=== PATIENT | male | born 1985 | race Caucasian/White ===

== ENCOUNTER 2023-08-04 08:37 | Outpatient (CLI) | payer BC, SELFPAY ==
--- NOTE | ~2023-08-04 | XR_ITS ---
Clinical Indication: Cough PA and lateral views of the chest: Comparison: None Findings: The lungs are clear, without evidence of focal consolidation or pleural effusion. Cardiome diastinal silhouette is within normal limits. Bones and soft tissues are unremarkable. Impression: Normal chest. Reviewed, dictated and finalized at location . Impression: Normal chest.
[2023-08-04 19:18] LABS: Hematocrit 40.2 % (42.0-52.0); Hemoglobin 13.4 g/dL (14.0-18.0); Mean Corpuscular HGB Conc 33.3 g/dl (32-36); Mean Corpuscular Hemoglobin 30.7 pg (26-34); Mean Corpuscular Volume 92.2 fl (80-100); Mean Platelet Volume 10.2 fl (7.4-10.4); Platelet Count Result 232 k/mm3 (150-375); Red Blood Count 4.36 M/mm3 (4.6-6.20); Red Cell Distribution Width 13.2 % (11.5-14.5); White Blood Count 5.3 K/mm3 (4.5-10.0)
[2023-08-04 20:16] LABS: Alanine Aminotransferase 19 U/L (6-50); Albumin Level 4.2 g/dL (3.5-5.1); Alkaline Phosphatase 72 U/L (38-126); Anion Gap 7 mmol/L (8-16); Aspartate Amino Transferase 48 U/L (17-59); Bilirubin,Total 0.6 mg/dL (0.2-1.3); Blood Urea Nitrogen 14 mg/dL (9-20); Calcium 8.9 mg/dL (8.4-10.2); Carbon Dioxide 28 mmol/L (22-30); Chloride 103 mmol/L (98-107); Cholesterol 213 mg/dL (0-200); Estimated Glomerular Filt Rate > 60; Glucose 83 mg/dL (65-110); HDL Direct 67 mg/dL; Potassium 3.9 mmol/L (3.4-5.0); Sodium 138 mmol/L (137-145); Triglycerides 94 mg/dL (<150)
[2023-08-04 20:29] LABS: LDL Cholesterol Direct 101 mg/dL
== END 2023-08-04 08:38 | disposition home or self-care (01) ==
PROVIDERS: PCP Nurse Practitioner Adult Health; Visit Provider Nurse Practitioner Adult Health
DX: Z13.9 Encounter for screening, unspecified (principal); R05.9 Cough, unspecified
CPT/HCPCS: 36415; 71046; 80053; 80061; 84443; 85027

== ENCOUNTER 2024-07-29 08:23 | Outpatient (CLI) | payer BC, SELFPAY ==
[2024-07-29 19:02] LABS: Hemoglobin 8.3 g/dL (14.0-18.0); Mean Corpuscular HGB Conc 25.9 g/dl (32-36); Mean Corpuscular Hemoglobin 17.9 pg (26-34); Mean Corpuscular Volume 69.1 fl (80-100); Mean Platelet Volume 10.3 fl (7.4-10.4); Platelet Count Result 287 k/mm3 (150-375); Red Blood Count 4.63 M/mm3 (4.6-6.20); Red Cell Distribution Width 19.9 % (11.5-14.5); White Blood Count 3.9 K/mm3 (4.5-10.0)
[2024-07-29 19:12] LABS: Alanine Aminotransferase 19 U/L (6-50); Albumin Level 4.4 g/dL (3.5-5.1); Alkaline Phosphatase 58 U/L (38-126); Anion Gap 9 mmol/L (4-12); Aspartate Amino Transferase 37 U/L (17-59); Bilirubin,Total 0.3 mg/dL (0.2-1.3); Blood Urea Nitrogen 14 mg/dL (9-20); Calcium 8.9 mg/dL (8.4-10.2); Carbon Dioxide 28 mmol/L (22-30); Chloride 99 mmol/L (98-107); Cholesterol 197 mg/dL (0-200); Estimated Glomerular Filt Rate > 60; Glucose 92 mg/dL (65-110); HDL Direct 68 mg/dL; Potassium 4.1 mmol/L (3.4-5.0); Sodium 136 mmol/L (137-145); Triglycerides 131 mg/dL (<150)
[2024-07-29 19:23] LABS: LDL Cholesterol Direct 90 mg/dL
[2024-07-29 19:29] LABS: Iron 25 ug/dL (49-181)
[2024-07-29 19:40] LABS: Percent Iron Saturation 6 % (20-50)
[2024-07-29 20:05] LABS: Ferritin 3.01 ng/mL (17.9-464)
== END 2024-07-29 08:24 | disposition home or self-care (01) ==
LOC: ANHBWCLAB 08:24
PROVIDERS: PCP Nurse Practitioner Adult Health; Visit Provider Nurse Practitioner Adult Health
DX: Z13.9 Encounter for screening, unspecified (principal); R63.8 Other symptoms and signs concerning food and fluid intake
CPT/HCPCS: 36415; 80053; 80061; 82607; 82728; 83540; 83550; 84443; 85027

== ENCOUNTER 2024-08-09 09:35 | Outpatient (CLI) | payer BC, SELFPAY ==
[2024-08-09 18:38] LABS: Hematocrit 33.4 % (42.0-52.0); Hemoglobin 8.7 g/dL (14.0-18.0); Mean Corpuscular Hemoglobin 18.4 pg (26-34); Mean Corpuscular Volume 70.5 fl (80-100); Mean Platelet Volume 10.1 fl (7.4-10.4); Platelet Count Result 250 k/mm3 (150-375); Red Blood Count 4.74 M/mm3 (4.6-6.20); Red Cell Distribution Width 21.6 % (11.5-14.5); White Blood Count 4.6 K/mm3 (4.5-10.0)
== END 2024-08-09 09:36 | disposition home or self-care (01) ==
LOC: ANHBWCLAB 09:37
PROVIDERS: PCP Nurse Practitioner Adult Health; Visit Provider Nurse Practitioner Adult Health
DX: D64.9 Anemia, unspecified (principal)
CPT/HCPCS: 36415; 85027

== ENCOUNTER 2024-09-01 15:29 | Outpatient (CLI) | payer BC, SELFPAY ==
[2024-09-01 15:41] LABS: Basophils Percent Auto 0.8 % (0.2-1.2); Eosinophils Absolute Auto 0.1 K/mm3 (0-0.3); Eosinophils Percent Auto 1.6 % (0-4.4); Hematocrit 37.3 % (42.0-52.0); Hemoglobin 11.1 g/dL (14.0-18.0); Immature Granulocyte Absolute 0.01 K/mm3 (0.00-0.031); Immature Granulocyte Percent A 0.2 % (0-0.5); Lymphocytes Absolute Auto 1.58 K/mm3 (0.9-3.2); Lymphocytes Percent Auto 31.5 % (18.3-44.2); Mean Corpuscular HGB Conc 29.8 g/dl (32-36); Mean Corpuscular Hemoglobin 21.9 pg (26-34); Mean Corpuscular Volume 73.7 fl (80-100); Mean Platelet Volume 8.9 fl (7.4-10.4); Monocytes Absolute Auto 0.6 K/mm3 (0.1-0.6); Monocytes Percent Auto 11.4 % (2.6-8.5); Neutrophils Absolute Auto 2.7 K/mm3 (1.3-6.7); Neutrophils Percent Auto 54.5 % (45.5-73.1); Platelet Count Result 228 k/mm3 (150-375); Red Blood Count 5.06 M/mm3 (4.6-6.20); Red Cell Distribution Width 26.5 % (11.5-14.5)
[2024-09-01 15:45] LABS: Hypochromasia 1+; Platelet Estimate Adequate (Adequate); Schistocytes None Seen
[2024-09-01 15:46] LABS: Anisocytosis 1+; Microcytosis 1+ (NORMAL)
[2024-09-01 17:10] LABS: Alanine Aminotransferase 23 U/L (6-50); Albumin Level 4.5 g/dL (3.5-5.1); Alkaline Phosphatase 58 U/L (38-126); Anion Gap 7 mmol/L (4-12); Aspartate Amino Transferase 26 U/L (17-59); Bilirubin,Total 0.3 mg/dL (0.2-1.3); Blood Urea Nitrogen 16 mg/dL (9-20); Carbon Dioxide 30 mmol/L (22-30); Chloride 100 mmol/L (98-107); Estimated Glomerular Filt Rate > 60; Glucose 92 mg/dL (65-110); Potassium 3.9 mmol/L (3.4-5.0); Sodium 137 mmol/L (137-145)
[2024-09-01 18:28] LABS: Folic Acid > 20.0 ng/mL (2.76->20)
[2024-09-01 21:06] LABS: Iron 46 ug/dL (49-181)
[2024-09-01 21:17] LABS: Percent Iron Saturation 12 % (20-50)
[2024-09-01 21:42] LABS: Ferritin 7.36 ng/mL (17.9-464)
== END 2024-09-01 15:30 | disposition home or self-care (01) ==
LOC: ANHLAB 15:29
PROVIDERS: PCP Nurse Practitioner Adult Health; Visit Provider Internal Medicine Hematology & Oncology
DX: D64.9 Anemia, unspecified (principal)
CPT/HCPCS: 36415; 80053; 82607; 82728; 82746; 83540; 83550; 85025

== ENCOUNTER 2024-09-16 01:34 | Day surgery (SDC) | payer BC, SELFPAY ==
[2024-09-15 10:19] VITALS: BMI 32.2
[2024-09-16 06:43] VITALS: BP 123/66; PULSE 79; RESP 16; TEMP 36.1; O2SAT 98; BMI 32.2
[2024-09-16] MEDS: LACTATED RINGERS 1,000 ML 150 ML IV CONT (06:51)
--- NOTE | 2024-09-16 07:12 | SUR.OPER ---
I spoke with patient today about his Givens Capsule Instructions. Envelope with all information and phone numbers provided. States no questions at this time.
--- NOTE | 2024-09-16 07:40 | WPDANESEPPF ---
Anes - Initial Pre Proc Eval Procedure: Operation Date: 09/16/24 08:00 Proposed Procedures p Esophagogastroduodenoscopy - Nolberto Artis MD s [facility] Hemorrhoid Treatment - Nolberto Artis MD Date/Time: 09/16/24 07:40 Surgeon: Nolberto Artis MD Pre Op Diagnosis: anemia, GERD, hemorrhage of anus/rectum Patient Data Age: 38 Gender: M Height: 1.78 m Weight: 101.9 kg Last Vital Signs Temp 36.1 C L 09/16/24 06:43 Pulse 79 09/16/24 06:43 Resp 16 09/16/24 06:43 BP 123/66 09/16/24 06:43 Pulse Ox 98 09/16/24 06:43 O2 Del Method Room Air 09/16/24 06:43 Allergies Allergy/AdvReac Type Severity Reaction Status Date / Time No Known Allergies Allergy Verified 09/16/24 06:42 Home Medications Medication Instructions Recorded Confirmed Type omeprazole 40 mg capsule,delayed See Rx Instructions .Route 07/15/24 09/16/24 Rx release .COMPLEX #90 caps multivitamin 1 tablet PO DAILY 09/14/24 09/16/24 History Patient hx anesthesia problems: none Family hx anesthesia problems: none Results Review: All pre-operative results and documents have been reviewed as part of the pre-operative evaluation. [facility] Past Medical History Medical History (Updated 09/16/24 @ 07:41 by Caleb Bush CRNA) Avulsion fracture of metatarsal bone of left foot Compartment syndrome GERD (gastroesophageal reflux disease) Hemorrhoids Hernia [place] (iron deficiency anemia) SERENITY (obstructive sleep apnea) Surgical History Surgical History Hx of LASIK Family History Family History Grandparent Diabetes mellitus Hypertension Grandparent Cancer Social History Social History Smoking status: Never smoker Alcohol intake: current Drinks per week: 4 Alcohol use details: Beer 3-4 Beer Substance use: current Lack of Transportation: No Lack of Food: Never True Current Housing: I Have Housing Concerned About Future Housing: No Difficulty Paying Gas/Electric Bills: No Difficulty Paying for Meds: No Currently Unemployed: No Education: Master's Degree or Higher Difficulty w/ Childcare or Family Care: No Living arrangements: with family Occupation/Education: occupation 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 Informed Consent: The patient's anesthetic plan and its attendant risks and benefits were discussed with the patient/family/POA. Questions were solicited and answers provided to the satisfaction of the patient/family/POA.
--- NOTE | 2024-09-16 07:41 | WPDHPUPDATE1 ---
History and Physical Update Update Date/Time: 09/16/24 07:41 History and Physical has been reviewed, including an updated exam of the patient. There are NO changes in the patient's condition. Risks, benefits, and alternatives have been discussed and questions answered. Patient agrees to proceed with procedure.
[2024-09-16 07:55] VITALS: BP 97/67; PULSE 67; RESP 20; O2SAT 96
[2024-09-16 08:05] VITALS: BP 102/55; PULSE 59; RESP 17; O2SAT 96
[2024-09-16 08:15] VITALS: BP 116/69; PULSE 66; RESP 17; O2SAT 98
--- NOTE | 2024-09-16 08:28 | W.PM.PROC2 ---
Procedure Note - Detailed Date of Procedure 09/16/24 Pre-op Diagnosis hemorrhage of anus/rectum Post-op Diagnosis Same Procedure Performed irc of internal hemorrhoids Surgeon Nolberto Artis MD Anesthesia MAC (also had EGD) Findings small size internal hemorrhoids, no bleeding, no fissure Description of Procedure noted small size internal hemorrhoids, placed anoscope, no lesions, no bleeding. Then advanced IRC probe and hemorrhoids treated for 1.5s x7
== END 2024-09-16 08:47 | disposition home or self-care (01) ==
PROVIDERS: PCP Nurse Practitioner Adult Health; Referring Provider Nurse Practitioner Family; Visit Provider Internal Medicine Gastroenterology
PROC: 0DJ08ZZ Inspection of Upper Intestinal Tract, Via Natural or Artificial Opening Endoscopic (ICD-10-PCS; CPT 43235; principal; 2024-09-16 08:00)
PROC: (CPT 46930; 2024-09-16 08:00)
DX: K64.8 Other hemorrhoids (principal); K29.50 Unspecified chronic gastritis without bleeding; D50.9 Iron deficiency anemia, unspecified; K21.9 Gastro-esophageal reflux disease without esophagitis; G47.33 Obstructive sleep apnea (adult) (pediatric); E66.9 Obesity, unspecified; Z68.32 Body mass index [BMI] 32.0-32.9, adult; Z98.890 Other specified postprocedural states; Z86.0100 Personal history of colon polyps, unspecified; Z80.9 Family history of malignant neoplasm, unspecified
CPT/HCPCS: 43239; 46930; 88305; J2704; J7120

== ENCOUNTER 2024-09-29 06:09 | Outpatient (CLI) | payer BC, SELFPAY ==
[2024-09-29 06:28] VITALS: BP 119/65; PULSE 65; RESP 18; TEMP 36.7; O2SAT 97
[2024-09-29] MEDS: SIMETHICONE ORAL SUSPENSION 20 MG/0.3 ML 30 ML BOTTLE 0.6 ML IRRIGATION (06:33)
--- NOTE | 2024-09-29 06:36 | SUR.OPER ---
Patient brought to GI Lab. Instructions for patient undergoing Capsule Endoscopy reviewed with patient. Consent form signed. Sensor array applied to patient's abdomen and connected to recorded. Patient swallowed capsule with 16 ozs of water infused with Simethicone. Patient instructed they may have clear liquids at 0830 this AM and eat or drink at 1030 this AM. Patient instructed to return to GI Lab at 1500 this afternoon for removal of recording device and to call [phone] or to return to the hospital if any nausea and vomiting or abdominal pain is experienced.
--- NOTE | 2024-09-29 15:00 | SUR.PREOP ---
Patient returned to the GI Lab at 1445 for recorder box removal. Patient voiced no complaints. States they have understanding of instructions. Patient left ambulatory.
== END 2024-09-29 06:10 | disposition home or self-care (01) ==
PROVIDERS: PCP Nurse Practitioner Adult Health; Referring Provider Nurse Practitioner Family; Visit Provider Internal Medicine Gastroenterology
PROC: 0DJ07ZZ Inspection of Upper Intestinal Tract, Via Natural or Artificial Opening (ICD-10-PCS; CPT 91110; principal; 2024-09-29 07:00)
DX: D50.9 Iron deficiency anemia, unspecified (principal); Z01.818 Encounter for other preprocedural examination
CPT/HCPCS: 91110

== ENCOUNTER 2025-03-28 11:43 | Outpatient (CLI) | payer BC, SELFPAY ==
--- OUTSIDE RECORDS SUMMARY | 2025-03-28 11:46 | XMS_ITS | Clinical Summary ---
Author Organization [facility] Address [address] [facility] [place] [address] Care Team Providers Care Logistics Engineer Name Role Phone Yadiel Eaton MD Primary Care Provider [phone] Allergies No known active allergies Medications omeprazole (PriLOSEC) 40 mg Capsule, Delayed Release(E.C.) Take 1 Capsule by mouth daily. 07/16/2024 Active Active Problems No known active problems Encounters Date Type Department Care Team Description 01/11/2025 External Device Data ST[facility] ABSTRACTION Provider, Abstract from Last 3 Months Family History Medical History Relation Name Comments No Known Problems Child 1 No Known Problems Child 2 No Known Problems Father No Known Problems Mother No Known Problems Sister Relation Name Status Comments Child 1 Alive Child 2 Alive Father Alive Mother Alive Sister Alive Social History Tobacco Use Types Packs/Day Years Used Date Smoking Tobacco: Never Smokeless Tobacco: Never Tobacco Cessation:Counseling Given: Not Answered Alcohol Use Standard Drinks/Week Comments Yes 0 (1 standard drink = 0.6 oz pur e alcohol) Socially Sex and Gender Information Value Date Recorded Sex Assigned at Not on file Legal Sex Male 10:03 AM CDT Gender Identity Not on file Sexual Orientation Not on file Last Filed Vital Signs Vital Sign Reading Time Taken Comments Blood Pressure 117/72 12/22/2024 9:32 AM TIRE RECAPPER Pulse 75 12/22/2024 9:32 AM TIRE RECAPPER Temperature 35.8 C (96.5 F) 12/22/2024 9:32 AM TIRE RECAPPER Respiratory Rate 14 12/22/2024 9:32 AM TIRE RECAPPER Oxygen Saturation 97% 12/22/2024 9:32 AM TIRE RECAPPER Inhaled Oxygen Concentration - - Weight 99.8 kg (220 lb) 12/22/2024 9:32 AM TIRE RECAPPER Height 177.8 cm (5' 10 ) 08/17/2024 3:07 PM CDT Body Mass Index 31.57 08/17/2024 3:07 PM CDT Plan of Treatment Upcoming Encounters Date Type Department Care Team (Late st Contact Info) Description 03/29/2025 1:00 PM CDT Office Visit [facility] Oncology and Hematology - [place] [address] [facility] [address] [place] [address] Shadi Suárez MD [address] [place] [address] Health Maintenance Due Date Last Done Comments Pre-Diabetes and Diabetes Screening 1985 INFLUENZA VACCINE (#1) 2024 , 08/30/2022, 10/11/2020, Additional history exists COVID-19 Vaccine ( season) 2024 09/25/2021, 12/15/2020, 11/15/2020 Preventative Visit- Commercial 11/17/2024 03/05/2019 DTAP/TDAP/TD VACCINES (4 - Td or Tdap) 08/30/2032 08/30/2022, 11/19/2011, 07/30/2002 HEPATITIS B VACCINES Completed 04/13/2003, 09/04/2002, 08/06/2002 HPV VACCINES Aged Out No longer eligi ble based on patient's age to complete this topic Insurance [facility] FEDERAL Care Teams Logistics Engineer Relationship Specialty Start Date End Date Yadiel Eaton MD [address] [place] [id number] PCP - General Family Practice 12/22/24
--- OUTSIDE RECORDS SUMMARY | 2025-03-28 11:47 | XMS_ITS | Clinical Summary ---
Author Organization [facility] Address [address] [place] [address] Care Team Providers Care Oil Fire Specialist Name Role Phone Unavailable Primary Care Provider Unavailabl e Social History Tobacco Use Types Packs/Day Years Used Date Smoking Tobacco: Never Assessed Sex and Gender Information Value Date Recorded Sex Assigned at Not on file Legal Sex Male 8:00 PM CDT Gender Identity Not on file Sexual Orientation Not on file Plan of Treatment Health Maintenance Due Date Last Done Comments Annual Physical 1986 Hepatitis C 2001 DTaP, Tdap and Td Vaccines ( 1 - Tdap) 2002 Hepatitis B Vaccines (1 of 3 - 19+ 3-dose series) 2002 COVID-19 Vaccine ( - 2023-2 5 season) 2024 HPV Vaccines Aged Out No longer eligi ble based on patient's age to complete this topic Meningococcal B Vaccine Aged Out No l onger eligible based on patient's age to complete this topic Meningococcal Vaccine Aged Out No ambika anjali eligible based on patient's age to complete this topic Pneumococcal Vaccine: Pediat rics (0 to 5 Years) and At-Risk Patients (6 to 49 Years) Aged Out No longer eligible b ased on patient's age to complete this topic RSV Immunizations Under 20 Months Aged Out No longer eligible based on patient's age to complete this topic
--- OUTSIDE RECORDS SUMMARY | 2025-03-28 11:47 | XMS_ITS | Clinical Summary ---
Author Organization [facility] [address] Address [address] [place] [address] Phone Care Team Providers Care Plastic Injection Mold Maker Name Role Phone Yadiel Eaton MD Primary Care Provider [phone] Allergies No known active allergies Medications hydrocortisone (ANUSOL-HC) 25 mg suppositoryInd ications:Hemor rhoids Insert 1 suppository (25 mg total) into the rectum 2 (two) times a day 28 suppository 3 Active Active Problems Problem Noted Date Diagnosed Date Personal history of colonic polyps 08/19/2023 Encounter for screening colonoscopy 08/19/2023 Non morbid obesity 01/15/2018 Assessment & Plan (03/05/2019 10:40 AM CDT): His weight is unchanged. Otherwise he is young and healthy and has no complaints. He plans to work on a better diet and some weight loss over the next several years along with his . Tubular adenoma of colon 08/02/2015 Overview (02/20/2017): Tubular adenoma of colon Assessment & Plan (03/05/2019 10:43 AM CDT): He was having some blood in the stool, and was evaluated with a colonoscopy that showed a small adenomatous polyp. The bleeding was perianal in etiology, probably from hemorrhoids. He does not really have constipation, but sometimes tries to hurry his bowel movements which is when he has problems with the bleeding. Fiber supplements have not helped. I recommend that he try MiraLax and titrate the dose so he has regular soft bowel movements. He will give that a try. Aphthous ulcer 07/06/2015 Overview (02/21/2017): Aphthous ulcer of mouth Immunizations Immunization Administration Dates Next Due Hep A / Hep B 04/13/2003,09/04/2002,08/06/2002 Influenza, Quadrivalent, Lola l Culture-based MDCK, Antibiotic Free, Intramuscular 01/03/2019 Azeri Encephalitis IM 02/09/2019 MMR 08/06/2002 Meningococcal ACWY, Unspecified 07/30/2002 PPD TEST 07/23/2005,06/27/2004,07/30/2002 Td, Unspecified 07/30/2002 Tdap 11/19/2011 Tetanus toxoid, adsorbed 02/16/2012 Typhoid, Unspecified 10/18/2003 Surgical History Surgery Date Site/Laterality Comments ANTERIOR COMPARTMENT DECOMPRESSION 11/17/1995 - 11/16/1996 Left Emergency decompression, left arm anterior compartment, football injury. COLONOSCOPY 07/18/2015 - 08/16/2015 COLONOSCOPY 11/17/2019 - 11/16/2020 POLYPECTOMY Medical History Medical History Date Comments Compartment syndrome 1995 Left arm. D etails lacking. Colon polyp Family History Medical History Relation Name Comments Breast cancer Mother Cancer, breast ; Fibromyalgia Mother Fibromyalgia; Relation Name Status Comments Mother Social History Tobacco Use Types Packs/Day Years Used Date Smoking Tobacco: Never Smokeless Tobacco: Never Tobacco Cessation:Counseling Given: Not Answered AUDIT-C Answer Date Recorded Q1: How often do you have a drink containing alc ohol? 2-4 times a month 10/06/2023 Q2: How many drinks containi ng alcohol do you have on a typical day when you are drinking? 3 or 4 10/06/2023 Frequency of Binge Drinking Not on file 09/18 Personal Safety Answer Date Recorded Have you ever been in or are you currently in a harmful physical or emotional relationship or is someone making you feel afraid or unsafe? Denies 10/06/2023 Sex and Gender Information Value Date Recorded Sex Assigned at Not on file Legal Sex Male 2:49 AM SOFTWARE DEVELOPER CONSULTANT Gender Identity Not on file Sexual Orientation Not on file Obstetrics History Last Filed Vital Signs Vital Sign Reading Time Taken Comments Blood Pressure 115/80 10/06/2023 11:55 AM SOFTWARE DEVELOPER CONSULTANT Pulse 65 10/06/2023 11:55 AM SOFTWARE DEVELOPER CONSULTANT Temperature 36.8 C (98.3 F) 10/06/2023 11:55 AM SOFTWARE DEVELOPER CONSULTANT Respiratory Rate 18 10/06/2023 11:55 AM SOFTWARE DEVELOPER CONSULTANT Oxygen Saturation 100% 10/06/2023 11:55 AM SOFTWARE DEVELOPER CONSULTANT Inhaled Oxygen Concentration - - Weight 97.5 kg (215 lb) 10/06/2023 10:01 AM SOFTWARE DEVELOPER CONSULTANT Height 177.8 cm (5' 10 ) 10/06/2023 10:01 AM SOFTWARE DEVELOPER CONSULTANT Body Mass Index 30.85 10/06/2023 10:01 AM SOFTWARE DEVELOPER CONSULTANT Plan of Treatment Health Maintenance Due Date Last Done Comments Depression Screening 1985 Hepatitis C Screening 1985 Varicella Vaccines (1 of 2 - 13+ 2-dose series) 09/07/2010 Regular Well Visit/Exam 18-64 03/05/2020 03/05/2019 Covid-19 Vaccine ( season) 2024 09/25/2021, 12/15/2020, 11/15/2020, Additional history exists Influenza Vaccine (#1) 2024 3, 08/30/2022, 10/11/2020, Additional history exists DTaP/Tdap/Td Vaccine (4 - Td or Tdap) 08/30/2032 08/30/2022, 02/16/2012, 11/19/2011, Additional history exists Hepatitis B Screening Completed 04/13/2003 , 09/04/2002, 08/06/2002 HPV Vaccines Aged Out No longer eligi ble based on patient's age to complete this topic Pneumococcal vaccine <65 Aged Out No longer eligible based on patient's age to complete this topic Additional Health Concerns Infection Onset Date Last Indicated MDR gram neg/ESBL Comment:Patients who received care at a healthcare facility outside of the [place] will be placed in Contact Precautions until infection or colonization with specific highly resistant bacteria can be ruled out. Infection Prevention will arrange screening. Please contact Infection Prevention. 10/03/2023 10/03/2023 Insurance [employer] Advance Directives For more information, please contact: [phone] * Full Code (Latest Code Status on File) Date Activated Date Inactivated Comments 10/06/2023 9:57 AM 10/06/2023 4:26 PM * Full Code Date Activated Date Inactivated Comments 10/06/2023 9:57 AM 10/06/2023 9:57 AM Care Teams Plastic Injection Mold Maker Relationship Specialty Start Date End Date Yadiel Eaton MD PCP - General Family Practice 10/06/23
--- OUTSIDE RECORDS SUMMARY | 2025-03-28 11:47 | XMS_ITS | Continuity of Care Document ---
Author Name [facility] Organization [facility] Care Team Providers Care Establishment Guide Name Role Phone [facility] Unavailable Unavailable Problems Combined list of problems from Department of Defense and Veterans Affairs facilities. It does not include entries that were removed or entered in error. 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) Active 09/08/20 Diagnosis 5C375 [facility] Removal Of Sutures Inactive Condition Do D OPEN WOUND OF THE FINGER(S) Inactive Condition DoD visit for: administrative purpose Inactive Condition DoD NORMAL ROUTINE HISTORY AND PHYSICAL Inactive Condition DoD visit for: screening exam pulmonary tuberculosis Inactive Condition DoD visit for: occupational health / fitness exam Active Condition Reviewed functional requirements and environmental factors of the position and they are acceptable to him.Reviewed exposure history form and placed it in hard copy of CEMRReviewed DD form 2807 and placed in CEMRReviewed audiogram and vision tx DoD visit for: services physical Inactive Condition DoD visit for: issue medical certificate Inactive Condition DoD REFRACTIVE ERROR - MYOPIA Active Condition DoD ASTIGMATISM Active Condition DoD foot pain (soft tissue) Inactive Condition toe dislocation / now reduced DoD FRACTURE OF METATARSAL BONE(S) Active Condition with midd le tarsal phalange dislocation, now reducedF/U fx clinic Oct 21. DoD Administrative Evaluation Services Inactive Condition DoD ASSESSMENT OF PATIENT CONDITION WORK STATUS Inactive Condition DoD Astigmatism Active Condition -375 th [facility] Myopia Active Condition 5C375 th [facility] Allergies, Adverse Reactions, Alerts Combined list of allergies from Department of Defense and Veterans Affairs facilities. It does not include entries that were removed or entered in error. Substance Category Reaction Severity Reaction type Status Date Reported Comments Source NO OUTPUT FOR NCID 801150 Drug allergy (disorder) active 07/26/2008 [facility] Immunizations Combined list of available immunizations from the Department of Defense and Veterans Affairs facilities. Immunization Series Date Given Administered By Site Reaction Lot Number CVX Code Drug Principal Ios Developer Status Comments Source influenza virus vaccine, inactivated 2022 MOODY MELISSA Valdez mike, left (delt oid) [id number] Nugg-it, A [employer] complet ed influenza virus vaccine, inactivat ed 09/08/23 Given 0055C-3 [facility] tetanus, diphtheria, acellular pertu is 2021 zzLef t Arm [id number] 115 sanofi pasteur complet ed tetanus, diphtheri a, acellular pertussis 08/30/22 Given Ambulat ory Pharmac y influenza, injectable, quadrivalent- pf 2021 zzRig ht Thigh [id number] 150 GlaxoSmithKli ne complet ed influenza , injectabl e, quadrival ent-pf 08/30/22 Given Ambulat ory Pharmac y tetanus toxoid, reduced diphtheria toxoid, and acellular pertu is vaccine, adsorbed 1 2021 TEO STALLWORTH A [id number] 115 Sanofi Pasteur (PMC) complet ed tetanus toxoid, reduced diphtheri a toxoid, and acellular pertussis vaccine, adsorbed DoD Influenza, injectable, quadrivalent, preservative free 1 2021 CAPRIArianna PRINCESS V [id number] 150 [facility] ([facility]) complet ed Influenza , injectabl e, quadrival ent, preservat benjamín free DoD COVID Vaccine Moderna 2020 zzLef t Arm [id number] 207 complet ed COVID Vaccine Moderna 09/25/21 Given Ambulat ory Pharmac y SARS-COV-2 (COVID-19) vaccine, mRNA, spike protein, LNP, preservative free, 100 mcg or 50 mcg dose 2 2020 CHERIE ROY [id number] 207 Moderna [employer] (MOD) complet ed SARS-COV- 2 (COVID-19 ) vaccine, mRNA, spike protein, LNP, preservat benjamín free, 100 mcg or 50 mcg dose DoD COVID Vaccine Moderna 2020 Body, whole [id number] 207 complet ed COVID Vaccine Moderna 12/15/20 Given Ambulat ory Pharmac y SARS-COV-2 (COVID-19) vaccine, mRNA, spike protein, LNP, preservative free, 100 mcg or 50 mcg dose 1 2020 CHERIE ROY [id number] 207 Moderna [employer] (MOD) complet ed SARS-COV- 2 (COVID-19 ) vaccine, mRNA, spike protein, LNP, preservat benjamín free, 100 mcg or 50 mcg dose DoD COVID Vaccine Pfizer 2019 Body, whole [id number] 208 complet ed COVID Vaccine Pfizer 11/15/20 Given Ambulat ory Pharmac y COVID Vaccine Moderna 2019 [id number] 207 complet ed COVID Vaccine Moderna 11/15/20 Given Ambulat ory Pharmac y SARS-COV-2 (COVID-19) vaccine, mRNA, spike protein, LNP, preservative free, 30 mcg/0.3mL dose 1 2019 CHERIE ROY [id number] 208 Transcribed (TRS) complet ed SARS-COV- 2 (COVID-19 ) vaccine, mRNA, spike protein, LNP, preservat benjamín free, 30 mcg/0.3mL dose DoD influenza, injectable, quadrivalent- pf 2019 TRANSCR IBED 150 complet ed influenza , injectabl e, quadrival ent-pf 10/11/20 Given Ambulat ory Pharmac y Turkmen Encephalitis IM 2018 [id number] 134 Valneva complet ed Turkmen Encephali tis IM 03/25/19 Given Ambulat ory Pharmac y Turkmen Encephalitis IM 2018 [id number] 134 Valneva complet ed Turkmen Encephali tis IM 02/09/19 Given Ambulat ory Pharmac y influenza virus vaccine, unspecified 2018 TRANSCR IBED 88 complet ed influenza virus vaccine, unspecifi ed 01/03/19 Given Ambulat ory Pharmac y influenza, injectable, quadrivalent- pf 2014 [id number] 150 [facility] influenza , injectabl e, quadrival ent-pf 09/04/15 Given Ambulat ory Pharmac y influenza, seasonal, injectable-pf 2011 [id number] 140 sanofi pasteur complet ed influenza , seasonal, injectabl e-pf 07/24/12 Given Ambulat ory Pharmac y tetanus, diphtheria, acellular pertu is 2011 TRANSCR IBED 115 complet ed tetanus, diphtheri a, acellular pertussis 11/19/11 Given Ambulat ory Pharmac y influenza virus vaccine, live 2009 [id number] 111 sim[employer]tec Inc comple t ed influenza virus vaccine, live 08/10/10 Given Ambulat ory Pharmac y influenza virus vaccine,split 2007 [id number] 15 GlaxoSmithKli ne complet ed influenza virus vaccine,s plit 09/06/08 Given Ambulat ory Pharmac y influenza virus vaccine,split 2004 [id number] 15 sanofi pasteur complet ed influenza virus vaccine,s plit 10/31/05 Given Ambulat ory Pharmac y tuberculin purified protein derivative 2004 [id number] 96 sanofi pasteur complet ed tuberculi n purified protein derivativ e 07/23/05 Given Ambulat ory Pharmac y influenza virus vaccine,split 2004 [id number] 15 sanofi pasteur complet ed influenza virus vaccine,s plit 03/22/05 Given Ambulat ory Pharmac y tuberculin purified protein derivative 2003 [id number] complet ed tuberculi n purified protein derivativ e 06/27/04 Given Ambulat ory Pharmac y typhoid Vi capsular polysaccharid e vac 2002 [id number] 101 sanofi pasteur complet ed typhoid Vi capsular polysacch aride vac 10/18/03 Given Ambulat ory Pharmac y influenza virus vaccine, whole virus 2002 [id number] Novartis Pharmaceut[employer] ls complet ed influenza virus vaccine, whole virus 08/16/03 Given Ambulat ory Pharmac y hepatitis A-hepatitis B vaccine 2002 [id number] 104 GlaxoSmithKli ne complet ed hepatitis A-hepatit is B vaccine 04/13/03 Given Ambulat ory Pharmac y hepatitis A-hepatitis B vaccine 2002 [id number] 4 104 GlaxoSmithKli ne complet ed hepatitis A-hepatit is B vaccine 04/13/03 Given Ambulat ory Pharmac y hepatitis A-hepatitis B vaccine 2001 [id number] 6 104 GlaxoSmithKli ne complet ed hepatitis A-hepatit is B vaccine 09/04/02 Given Ambulat ory Pharmac y hepatitis A-hepatitis B vaccine 2001 [id number] 6 104 GlaxoSmithKli ne complet ed hepatitis A-hepatit is B vaccine 09/04/02 Given Ambulat ory Pharmac y influenza virus vaccine, whole virus 2001 [id number] 16 sanofi pasteur complet ed influenza virus vaccine, whole virus 08/21/02 Given Ambulat ory Pharmac y hepatitis A-hepatitis B vaccine 2001 [id number] 6 104 GlaxoSmithKli ne complet ed hepatitis A-hepatit is B vaccine 08/06/02 Given Ambulat ory Pharmac y measles/mumps /rubella virus vaccine 2001 [id number] [employer] complet ed measles/m umps/rube lla virus vaccine 08/06/02 Given Ambulat ory Pharmac y hepatitis A-hepatitis B vaccine 2001 [id number] 6 104 GlaxoSmithKli ne complet ed hepatitis A-hepatit is B vaccine 08/06/02 Given Ambulat ory Pharmac y poliovirus vaccine, inactivated 2001 [id number] sanofi pasteur complet ed polioviru s vaccine, inactivat ed 07/30/02 Given Ambulat ory Pharmac y tuberculin purified protein derivative 2001 [id number] 96 sanofi pasteur complet ed tuberculi n purified protein derivativ e 07/30/02 Given Ambulat ory Pharmac y meningococcal polysaccharid e (MPSV4) 2001 [id number] 32 sanofi pasteur complet ed meningoco ccal polysacch aride (MPSV4) 07/30/02 Given Ambulat ory Pharmac y tetanus-dipht h toxoids (Td) adult/adol 2001 [id number] 09 sanofi pasteur complet ed tetanus-d iphth toxoids (Td) adult/ado l 07/30/02 Given Ambulat ory Pharmac y Results Combined list of recent chemistry, hematology and other laboratory results from Department of Defense and Veterans Affairs, ranging from 15 months to all on record, depending upon the facility. Order Name Results Value Reference Range Date Interpretation Specimen Comments Source Chemistry CO2 28 mmol/L 22 - 29 08/31 N 0055A-[address] [place] [address] Chemistry Glucose Lvl 91 mg/dL 74 - 99 08/31 N -[address] [place] [address] Chemistry Creatinine Level 1.00 mg/dL 0.72 - 1.25 08/31 N -[address] [place] [address] Chemistry Sodium 139 mmol/L 136 - 145 08/31 N -[address] [place] [address] Chemistry Potassium Lvl 3.7 mmol/L 3.5 - 5.1 08/31 N -[address] [place] [address] Chemistry AGAP 7.00 0.00 - 15.00 08/31 N -[address] [place] [address] Chemistry BUN/Creat Ratio 17 mg/dL 12 - 20 08/31 N -[address] [place] [address] Chemistry BUN 17 mg/dL 8 - 26 08/31 N -[address] [place] [address] Chemistry Chloride 104 mmol/L 98 - 107 08/31 N - [address] [place] [address] Chemistry Calcium 9.4 mg/dL 8.4 - 10.2 08/31 N -[address] [place] [address] Chemistry Cholesterol Total 211 mg/dL 08/31 H Interpretiv e Data: According to the [employer] [employer] : AGES 0-19: Desirable: < 170 mg/dL Borderline High: 170-199 mg/dL High Blood Cholesterol : >/= 200 mg/dL ADULTS: Desirable < 200 mg/dL Borderline High: 200-239 mg/dL High Blood Cholesterol : >/= 240 mg/dL [address] [place] [address] Chemistry Chol/HDL 3 mg/dL 08/[address] [place] [address] Chemistry HDL Cholesterol 65 mg/dL 40 - 59 08/31 H Interpretiv e Data: HDL (HIGH DENSITY LIPOPROTEIN ): ADULTS: Low: < 40 mg/dL High: >/= 60 mg/dL AGES 0 -19: Low: < 40 mg/dL Borderline Low: 40 - 45 mg/dL Acceptable: > 45 mg/dL [address] [place] [address] Chemistry LDL/HDL 2 08/[address] [place] [address] Chemistry LDL 125 mg/dL 100 - 130 08/31 N Interpretiv e Data: AGES 0-19: Desirable: < 110 mg/dL Borderline High: 110-129 mg/dL High: >/= 130 mg/dL ADULTS: Desirable: <100 mg/dL Near/above optimal: 100-130 mg/dL Borderline High: 131-159 mg/dL High: 160-189 mg/dL Very High: 190 mg/dL [address] [place] [address] Chemistry Triglycerid es 189 mg/dL 7 - 149 08/31 H Interpretiv e Data: AGES 0-9: Desirable: < 75 mg/dL Borderline High: 75-99 mg/dL High: >/= 100 mg/dL AGES 10-19: Desirable: < 90 mg/dL Borderline High: 90-129 mg/dL High: >/= 130 mg/dL ADULTS: Desirable: < 150 mg/dL Borderline High: 150-199 mg/dL High: >/= 240 mg/dL Very High: >/= 500 mg/dL [address] [place] [address] Toxicolog y PFHxS LC 1.4 ng/mL 08/31 Result Comment: Reporting Limit: 0.10 ng/mL Synonym(s): Perfluorohe xane Sulfonic Acid General [place] population from [facility] () (o=[phone]) is typically below 3.7 ng/mL (95% CI, 3.3-5.6 ng/mL) (95th percentile) Analysis by High Performance Liquid Chromatogra phy/ Tandem Mass Spectrometr y (LC-MS/MS) [address] [place] [address] Toxicolog y PFNA LC 0.21 ng/mL 08/31 Result Comment: Reporting Limit: 0.10 ng/mL Synonym(s): Perfluorono nanoic Acid General [place] population from [facility] () (d=[phone]) is typically below 1.4 ng/mL (95% CI, 1.1-1.8 ng/mL) (95th percentile) Analysis by High Performance Liquid Chromatogra phy/ Tandem Mass Spectrometr y (LC-MS/MS) [address] [place] [address] Toxicolog y PFDA LC None Detected 08/31 Result Comment: Reporting Limit: 0.10 ng/mL Synonym(s): Perfluorode canoic Acid General [place] population from [facility] () (q=[phone]) is typically below 0.60 ng/mL (95% CI, 0.50-0.90 ng/mL) (95th percentile) Analysis by High Performance Liquid Chromatogra phy/ Tandem Mass Spectrometr y (LC-MS/MS) 5A-[address] [place] [address] Toxicolog y Branched PFOS Isomers LC 0.82 ng/mL 08/31 Result Comment: Reporting Limit: 0.10 ng/mL Synonym(s): Sm-PFOS; Perfluorome thylheptane Sulfonic Acid (PFOS) branched isomers General [place] population from [facility] () (f=[id number]) is typically below 4.5 ng/mL (95% CI, 3.8-5.4 ng/mL) (95th percentile) Analysis by High Performance Liquid Chromatogra phy/ Tandem Mass Spectrometr y (LC-MS/MS) 5A-[address] [place] [address] Toxicolog y Linear PFOS Isomer LC 3.1 ng/mL 08/31 Result Comment: Reporting Limit: 0.10 ng/mL Synonym(s): n-PFOS; n-Perfluoro octane Sulfonic Acid (PFOS) linear isomer Comment: Substance(s ) known to interfere with the identity and/or quantity of the reported result: 1-Methyl-PF HpS General [place] population from [facility] () (l=[phone]) is typically below 10.4 ng/mL (95% CI, 9.4-12.0 ng/mL) (95th percentile) Analysis by High Performance Liquid Chromatogra phy/ Tandem Mass Spectrometr y (LC-MS/MS) 5A-[address] [place] [address] Toxicolog y Total PFOS Isomers LC 3.9 ng/mL 08/31 Result Comment: Synonym(s): Sum of linear and branched Perfluorooc tane Sulfonic Acid (PFOS) isomers General [place] population from [facility] () (n=[phone]) is typically below 14.6 ng/mL (95% CI, 13.1-16.5 ng/mL) (95th percentile) Analysis by High Performance Liquid Chromatogra phy/ Tandem Mass Spectrometr y (LC-MS/MS) [address] [place] [address] Toxicolog y PFHpS LC 0.13 ng/mL 08/31 Result Comment: Reporting Limit: 0.10 ng/mL Synonym(s): Perfluorohe ptane Sulfonic Acid General [place] population from [facility] () (b=[phone]) is typically below 1.0 ng/mL (95% CI, 0.50-4.60 ng/mL) (95th percentile) Analysis by High Performance Liquid Chromatogra phy/ Tandem Mass Spectrometr y (LC-MS/MS) [address] [place] [address] Toxicolog y PFUnDA LC None Detected 08/31 Result Comment: Reporting Limit: 0.10 ng/mL Synonym(s): PFUA; Perfluoroun decanoic Acid [facility] [facility] () (t=1849) is typically below 0.40 ng/mL (95% CI, 0.30-0.50 ng/mL) (95th percentile) Analysis by High Performance Liquid Chromatogra phy/ Tandem Mass Spectrometr y (LC-MS/MS) [address] [place] [address] Toxicolog y MeFOSAA LC None Detected 08/31 Result Comment: Reporting Limit: 0.10 ng/mL Synonym(s): Me-PFOSA-Ac [place]; 2-(N-Methyl -perfluoroo ctane sulfonamido ) Acetic Acid General [place] population from [facility] () (n=5049) is typically below 0.60 ng/mL (95% CI, 0.50-0.70 ng/mL) (95th percentile) Analysis by High Performance Liquid Chromatogra phy/ Tandem Mass Spectrometr y (LC-MS/MS) [address] [place] [address] Toxicolog y PFDoDA LC None Detected 08/31 Result Comment: Reporting Limit: 0.10 ng/mL Synonym(s): PFDoA; Perfluorodo decanoic Acid General [place] population [facility] () (q=4094) is typically below 0.10 ng/mL (95th percentile) Analysis by High Performance Liquid Chromatogra phy/ Tandem Mass Spectrometr y (LC-MS/MS) [address] [place] [address] Toxicolog y NASEM Summation Value LC 6.3 ng/mL 08/31 Result Comment: The National Academies of Science, Engineering , and Medicine (NASEM) recommends the following clinical guidance related to an additive sum value for MeFOSAA, PFHxS, PFOA (linear and branched isomers), PFDA, PFUnDA, PFOS (linear and branched isomers), and PFNA in serum or plasma: Adverse health effects related to PFAS exposure are not expected at less than 2 ng/mL. There is a potential for adverse effects, especially in sensitive populations , between 2 and 20 ng/mL. There is an increased risk of adverse effects at greater than 20 ng/mL. Analysis by High Performance Liquid Chromatogra phy/ Tandem Mass Spectrometr y (LC-MS/MS) This test was developed and its performance characteris tics determined by [facility]. It has not been cleared or approved by the US Food and Drug Administrat ion. Digital data review may have taken place remotely by qualified [facility] staff utilizing a secure LYYNN connection for some or all of the reported results. This is in accordance with and follows CLIA regulations . Performed At: [address] [id number] [place] Flavio Keller PhD Ph:[phone] 0055A-[address] [place] [address] Storificolog PFHxA LC None Detected 08/31 Result Comment: Reporting Limit: 0.10 ng/mL Synonym(s): Perfluorohe xanoic Acid General [place] population from [facility] () (e=[phone]) is typically below 0.10 ng/mL (95th percentile) Analysis by High Performance Liquid Chromatogra phy/ Tandem Mass Spectrometr y (LC-MS/MS) 5A-[address] [place], [place] [address]olog y ADONA LC None Detected 08/31 Result Comment: Reporting Limit: 0.10 ng/mL Synonym(s): 4,8-Dioxa-3 H-perfluoro nonanoate; Dodecafluor o-3H-4,8-di oxanonanoat e General [place] population from [facility] () (a=[phone]) is typically below 0.10 ng/mL (95th percentile) Analysis by High Performance Liquid Chromatogra phy/ Tandem Mass Spectrometr y (LC-MS/MS) -[address] [place] [address] Toxicolog y Branched PFOA Isomers LC None Detected 08/31 Result Comment: Reporting Limit: 0.10 ng/mL Synonym(s): Sb-PFOA; Perfluorooc tanoic Acid (PFOA) branched isomers General [place] population from [facility] () (c=4928) is typically below 0.20 ng/mL (95% CI, <0.10-0.20 ng/mL) (95th percentile) Analysis by High Performance Liquid Chromatogra phy/ Tandem Mass Spectrometr y (LC-MS/MS) - [address] [place] [address] Toxicolog y Linear PFOA Isomer LC 0.79 ng/mL 08/31 Result Comment: Reporting Limit: 0.10 ng/mL Synonym(s): n-PFOA; n-Perfluoro octanoic Acid (PFOA) linear isomer General [place] population from [facility] () (r=1251) is typically below 3.7 ng/mL (95% CI, 3.1-5.0 ng/mL) (95th percentile) Analysis by High Performance Liquid Chromatogra phy/ Tandem Mass Spectrometr y (LC-MS/MS) [address] [place] [address] Toxicolog y Total PFOA Isomers LC 0.79 ng/mL 08/31 Result Comment: Synonym(s): Sum of linear and branched Perfluorooc tanoic Acid (PFOA) isomers General [place] population from [facility] () (u=7242) is typically below 3.77 ng/mL (95% CI, 3.17-5.07 ng/mL) (95th percentile) Analysis by High Performance Liquid Chromatogra phy/ Tandem Mass Spectrometr y (LC-MS/MS) -[address] [place] [address] Chemistry eGFR CKD EPI 98 mL/min/1 .73_m2 08/31 Interpretiv e Data: Estimated Glomerular Filtration Rate (eGFR) calculated using the 2020 Chronic Kidney Disease-Epi demiology (CKD-EPI) Collaborati on creatinine equation; units of measure are mL/min/1.73 m2. Results are only valid for adults (>=18 years) whose serum creatinine is in steady state. eGFR calculation s are not valid for patients with acute kidney injury and for patients on dialysis. Creatinine- based estimates of kidney function may also be inaccurate in patients with reduced creatinine generation due to decreased muscle mass (e.g., malnutritio n, severe hypoalbumin emia, sarcopenia, chronic neuromuscul ar disease, amputations , severe heart failure or liver disease) and in patients with increased creatinine generation due to increased muscle mass (e.g., muscle builders, anabolic steroids) or increased dietary intake. CKD is diagnosed based on abnormaliti es of kidney structure or function, present for >3 months, with implication s for health and disease. CKD is classified and staged based on cause, eGFR and albuminuria (quantified as urine albumin to creatinine ratio). An eGFR >60 mL/min/1.73 m2 in the absence of increased urine albumin excretion or structural abnormaliti es does not CKD. eGFR provides only an estimate of measured GFR within +/- 30% for most patients. As mentioned, nutritional status and muscle mass, among many factors, may lead to inaccuracy in the estimate. Consider ordering the creatinine- cystatin C panel if better accuracy is needed for clinical decision-quinton saavedra. eGFR (mL/min/1.7 3 m2) CKD stage Interpretat ion Normal 60-89 Mild decrease 45-59 Mild to moderate decrease 30-44 Moderate to severe decrease 15-29 Severe decrease <15 Kidney failure - [facility] Immature Granulocyte s.LC 0 % Not Estab. 08/31 [facility] Immature Grans (Abs).LC 0.0 10^3/uL 0.0 - 0.1 08/31 [facility] Hematology Comments.LC Note: 08/31 Result Comment: Verified by microscopic examination . Performed At: [address] [id number] Debra Damian PhD Ph:[phone] [facility] Neutrophils .LC 63 % Not Estab. 08/31 [facility] H[facility] Lymphs.LC 25 % Not Estab. 08/31 [facility] Monocytes.L C 10 % Not Estab. 08/31 [facility] Eos.LC 1 % Not Estab. 08/31 [facility] Basos.LC 1 % Not Estab. 08/31 [facility] H[facility] Neutrophils (Abs).LC 2.9 10^3/uL 1.4 - 7.0 08/31 [facility] H[facility] Lymphs (Abs).LC 1.2 10^3/uL 0.7 - 3.1 08/31 [facility] Hematolog y Monocytes (Abs).LC 0.4 10^3/uL 0.1 - 0.9 08/31 [facility] H[facility] Eos (Abs).LC 0.0 10^3/uL 0.0 - 0.4 08/31 [facility] Hematolog y Basos (Abs).LC 0.0 10^3/uL 0.0 - 0.2 08/31 [facility] H[facility] WBC.LC 4.5 10^3/uL 3.4 - 10.8 08/31 [facility] Hematolog y RBC Count.LC 5.34 10^6/uL 4.14 - 5.80 08/31 Result Comment: Polychromas ia present Ovalocytes present. [facility] Hemoglobin. LC 11.2 g/dL 13.0 - 17.7 08/31 L [facility] Hematocrit. LC 39.0 % 37.5 - 51.0 08/31 [facility] MCV.LC 73 fL 79 - 97 08/31 L [facility] H[facility] MCH.LC 21.0 pg 26.6 - 33.0 08/31 L [facility] Hematolog y MCHC.LC 28.7 g/dL 31.5 - 35.7 08/31 L 0055A-[address] [place] [address] Hematolog y RDW.LC 24.8 % 11.6 - 15.4 08/31 H 5A-[address] [place] [address] Hematolog y Platelets.L C 250 10^3/uL 150 - 450 08/31 0055A-[address] [place] [address] Urinalysi s UA Urobilinoge n 0.2 E.U./dL 0.2 - 1.0.. 08/31 N 0055A-[address] [place] [address] Urinalysi s UA WBC TNP 08/31 0055A-[address] [place] [address] Urinalysi s UA RBC TNP 08/31- [address] [place] [address] Urinalysi s UA Spec [place] 1.010 1.001 - 1.035 08/31 N 5A- [address] [place] [address] Urinalysi s UA Blood Negative ( 4 8:53 AM) 08/31 N 5A-[address] [place] [address] Urinalysi s UA Clarity Clear *NA* ( 4 8:53 AM) 08/31- [address] [place] [address] Urinalysi s UA Color Yellow *NA* ( 4 8:53 AM) 08/31-[address] [place] [address] Urinalysi s UA Bili Negative ( 4 8:53 AM) Negative 08/31 N -[address] [place] [address] Urinalysi s UA Nitrite Negative ( 4 8:53 AM) 08/31 N 5A-[address] [place] [address] Urinalysi s UA pH 7.0 *NA* ( 4 8:53 AM) 5 - 8 08/31-[address] [place] [address] Urinalysi s UA Protein Negative mg/dL 08/31 N 0055A-[address] [place] [address] Urinalysi s UA Glucose Negative mg/dL Negative 08/31 N 5A-[address] [place] [address] Urinalysi s UA Ketones Negative mg/dL Negative 08/31 N 0055A-3 [facility] Urinalysi s UA Leuk Esterase Negative ( 4 8:53 AM) Negative 08/31 N 0055A-3 [facility] Chemistry eGFR CKD EPI 98 mL/min/1 .73_m2 12/05 Interpretiv e Data: Estimated Glomerular Filtration Rate (eGFR) calculated using the 2020 Chronic Kidney Disease-Epi demiology (CKD-EPI) Collaborati on creatinine equation; units of measure are mL/min/1.73 m2. Results are only valid for adults (>=18 years) whose serum creatinine is in steady state. eGFR calculation s are not valid for patients with acute kidney injury and for patients on dialysis. Creatinine- based estimates of kidney function may also be inaccurate in patients with reduced creatinine generation due to decreased muscle mass (e.g., malnutritio n, severe hypoalbumin emia, sarcopenia, chronic neuromuscul ar disease, amputations , severe heart failure or liver disease) and in patients with increased creatinine generation due to increased muscle mass (e.g., muscle builders, anabolic steroids) or increased dietary intake. CKD is diagnosed based on abnormaliti es of kidney structure or function, present for >3 months, with implication s for health and disease. CKD is classified and staged based on cause, eGFR and albuminuria (quantified as urine albumin to creatinine ratio). An eGFR >60 mL/min/1.73 m2 in the absence of increased urine albumin excretion or structural abnormaliti es does not CKD. eGFR provides only an estimate of measured GFR within +/- 30% for most patients. As mentioned, nutritional status and muscle mass, among many factors, may lead to inaccuracy in the estimate. Consider ordering the creatinine- cystatin C panel if better accuracy is needed for clinical decision-quinton saavedra. eGFR (mL/min/1.7 3 m2) CKD stage Interpretat ion Normal 60-89 Mild decrease 45-59 Mild to moderate decrease 30-44 Moderate to severe decrease 15-29 Severe decrease <15 Kidney failure 5A-3 [facility] Chemistry Sodium 140 mmol/L 136 - 145 12/05 N 0055A-3 [facility] Chemistry Glucose Lvl 86 mg/dL 74 - 99 12/05 N 0055A-[address] [place] [address] Chemistry Potassium Lvl 3.9 mmol/L 3.5 - 5.1 12/05 N 0055A-[address] [place] [address] Chemistry AGAP 9.00 0.00 - 15.00 12/05 N 0055A-[address] [place] [address] Chemistry AST 17 U/L 5 - 34 12/05 N 0055A-[address] [place] [address] Chemistry Bilirubin Total 0.5 mg/dL 0.2 - 1.2 12/05 N 0055A-[address] [place] [address] Chemistry Albumin 4.20 g/dL 3.50 - 5.20 12/05 N 0055A-[address] [place] [address] Chemistry Alk Phos 67 U/L 40 - 150 12/05 N 005-[address] [place] [address] Chemistry ALT 21 U/L 5 - 55 12/05 N -[address] [place] [address] Chemistry Calcium 9.9 mg/dL 8.4 - 10.2 12/05 N 005-[address] [place] [address] Chemistry Chloride 103 mmol/L 98 - 107 12/05 N 005-[address] [place] [address] Chemistry CO2 28 mmol/L 22 - 29 12/05 N 005-[address] [place] [address] Chemistry Creatinine Level 1.00 mg/dL 0.72 - 1.25 12/05 N 0055A-[address] [place] [address] Chemistry BUN 13 mg/dL 8 - 26 12/05 N 0055A-[address] [place] [address] Chemistry BUN/Creat Ratio 13 mg/dL 12 - 20 12/05 N 0055A-[address] [place] [address] Chemistry Protein Total 7.5 g/dL 6.4 - 8.3 12/05 N 0055A-[address] [place] [address] Toxicolog y Linear PFOA Isomer LC 1.1 ng/mL 12/05 Result Comment: Reporting Limit: 0.10 ng/mL Synonym(s): n-PFOA; n-Perfluoro octanoic Acid (PFOA) linear isomer General [place] population from [facility] ([phone]) (w=4676) is typically below 3.7 ng/mL (95% CI, 3.1-5.0 ng/mL) (95th percentile) Analysis by High Performance Liquid Chromatogra phy/ Tandem Mass Spectrometr y (LC-MS/MS) 5A-[address] [place], [place] [address]AI Patentsolog y Branched PFOA Isomers LC None Detected 12/05 Result Comment: Reporting Limit: 0.10 ng/mL Synonym(s): Sb-PFOA; Perfluorooc tanoic Acid (PFOA) branched isomers [facility] [place] [facility] () (u=[phone]) is typically below 0.20 ng/mL (95% CI, <0.10-0.20 ng/mL) (95th percentile) Analysis by High Performance Liquid Chromatogra phy/ Tandem Mass Spectrometr y (LC-MS/MS) 5A- [address] [place] [address] Storificolog y PFDA LC None Detected 12/05 Result Comment: Reporting Limit: 0.10 ng/mL Synonym(s): Perfluorode canoic Acid [facility] [place] [facility] () (a=2910) is typically below 0.60 ng/mL (95% CI, 0.50-0.90 ng/mL) (95th percentile) Analysis by High Performance Liquid Chromatogra phy/ Tandem Mass Spectrometr y (LC-MS/MS) 5A- [address] [place] [address] Storificolog y PFHxS LC 2.0 ng/mL 12/05 Result Comment: Reporting Limit: 0.10 ng/mL Synonym(s): Perfluorohe xane Sulfonic Acid [facility] [place] population [facility] () (i=[phone]) is typically below 3.7 ng/mL (95% CI, 3.3-5.6 ng/mL) (95th percentile) Analysis by High Performance Liquid Chromatogra phy/ Tandem Mass Spectrometr y (LC-MS/MS) 5A- [address] [place] [address] Storificolog y PFNA LC 0.26 ng/mL 12/05 Result Comment: Reporting Limit: 0.10 ng/mL Synonym(s): Perfluorono nanoic Acid General [place] population from [facility] () (x=[phone]) is typically below 1.4 ng/mL (95% CI, 1.1-1.8 ng/mL) (95th percentile) Analysis by High Performance Liquid Chromatogra phy/ Tandem Mass Spectrometr y (LC-MS/MS) 0055A-3 [facility] Dileep Toxicolog y Total PFOA Isomers LC 1.1 ng/mL 12/05 Result Comment: Synonym(s): Sum of linear and branched Perfluorooc tanoic Acid (PFOA) isomers General [place] population from [facility] () (q=[phone]) is typically below 3.77 ng/mL (95% CI, 3.17-5.07 ng/mL) (95th percentile) Analysis by High Performance Liquid Chromatogra phy/ Tandem Mass Spectrometr y (LC-MS/MS) 0055A-[address] [place] [address] Storificolog y PFUnDA LC None Detected 12/05 Result Comment: Reporting Limit: 0.10 ng/mL Synonym(s): PFUA; Perfluoroun decanoic Acid General [place] population from [facility] () (c=3153) is typically below 0.40 ng/mL (95% CI, 0.30-0.50 ng/mL) (95th percentile) Analysis by High Performance Liquid Chromatogra phy/ Tandem Mass Spectrometr y (LC-MS/MS) 0055A-[address] [place] [address] Toxicolog y Total PFOS Isomers LC 6.4 ng/mL 12/05 Result Comment: Synonym(s): Sum of linear and branched Perfluorooc tane Sulfonic Acid (PFOS) isomers General [place] population from [facility] () (r=[phone]) is typically below 14.6 ng/mL (95% CI, 13.1-16.5 ng/mL) (95th percentile) Analysis by High Performance Liquid Chromatogra phy/ Tandem Mass Spectrometr y (LC-MS/MS) 0055A-[address] [place] [address] Dileep Toxicolog y PFHpS LC 0.20 ng/mL 12/05 Result Comment: Reporting Limit: 0.10 ng/mL Synonym(s): Perfluorohe ptane Sulfonic Acid General [place] population from [facility] () (j=[phone]) is typically below 1.0 ng/mL (95% CI, 0.50-4.60 ng/mL) (95th percentile) Analysis by High Performance Liquid Chromatogra phy/ Tandem Mass Spectrometr y (LC-MS/MS) - [address] [place] [address] Toxicolog y Branched PFOS Isomers LC 1.2 ng/mL 12/05 Result Comment: Reporting Limit: 0.10 ng/mL Synonym(s): Sm-PFOS; Perfluorome thylheptane Sulfonic Acid (PFOS) branched isomers General [place] population from [facility] () (c=0389) is typically below 4.5 ng/mL (95% CI, 3.8-5.4 ng/mL) (95th percentile) Analysis by High Performance Liquid Chromatogra phy/ Tandem Mass Spectrometr y (LC-MS/MS) [address] [place], [place] [address]olog y Linear PFOS Isomer LC 5.2 ng/mL 12/05 Result Comment: Reporting Limit: 0.10 ng/mL Synonym(s): n-PFOS; n-Perfluoro octane Sulfonic Acid (PFOS) linear isomer Comment: Substance(s ) known to interfere with the identity and/or quantity of the reported result: 1-Methyl-PF HpS General [place] population from [facility] () (r=[phone]) is typically below 10.4 ng/mL (95% CI, 9.4-12.0 ng/mL) (95th percentile) Analysis by High Performance Liquid Chromatogra phy/ Tandem Mass Spectrometr y (LC-MS/MS) - [address] [place] [address] Toxicolog y PFDoDA LC None Detected 12/05 Result Comment: Reporting Limit: 0.10 ng/mL Synonym(s): PFDoA; Perfluorodo decanoic Acid General [place] population from [facility] ([phone]) (a=1820) is typically below 0.10 ng/mL (95th percentile) Analysis by High Performance Liquid Chromatogra phy/ Tandem Mass Spectrometr y (LC-MS/MS) 5A-[address] [place] [address] Toxicolog y NASEM Summation Value LC 9.7 ng/mL 12/05 Result Comment: The National Academies of Science, Engineering , and Medicine (NASEM) recommends the following clinical guidance related to an additive sum value for MeFOSAA, PFHxS, PFOA (linear and branched isomers), PFDA, PFUnDA, PFOS (linear and branched isomers), and PFNA in serum or plasma: -Adverse health effects related to PFAS exposure are not expected at less than 2 ng/mL. -There is a potential for adverse effects, especially in sensitive populations , between 2 and 20 ng/mL. -There is an increased risk of adverse effects at greater than 20 ng/mL. Analysis by High Performance Liquid Chromatogra phy/ Tandem Mass Spectrometr y (LC-MS/MS) This test was developed and its performance characteris tics determined by [facility]. It has not been cleared or approved by the US Food and Drug Administrat ion. Digital data review may have taken place remotely by qualified [facility] staff utilizing a secure LYYNN connection for some or all of the reported results. This is in accordance with and follows CLIA regulations . Performed At: [address] [id number] Yessica Keller PhD Ph:[phone] 49 0055A-[address] [place] [address] Toxicolog y MeFOSAA LC None Detected 12/05 Result Comment: Reporting Limit: 0.10 ng/mL Synonym(s): Me-PFOSA-Ac [place]; 2-(N-Methyl -perfluoroo ctane sulfonamido ) Acetic Acid General [place] population from [facility] () (h=2777) is typically below 0.60 ng/mL (95% CI, 0.50-0.70 ng/mL) (95th percentile) Analysis by High Performance Liquid Chromatogra phy/ Tandem Mass Spectrometr y (LC-MS/MS) -[address] [place], [place] [address]olog y PFHxA LC None Detected 12/05 Result Comment: Reporting Limit: 0.10 ng/mL Synonym(s): Perfluorohe xanoic Acid General [place] population from [facility] () (j=4122) is typically below 0.10 ng/mL (95th percentile) Analysis by High Performance Liquid Chromatogra phy/ Tandem Mass Spectrometr y (LC-MS/MS) 5A-[address] [place] [address] Toxicolog y ADONA LC None Detected 12/05 Result Comment: Reporting Limit: 0.10 ng/mL Synonym(s): 4,8-Dioxa-3 H-perfluoro nonanoate; Dodecafluor o-3H-4,8-di oxanonanoat e General [place] population from [facility] ([phone]) (c=1551) is typically below 0.10 ng/mL (95th percentile) Analysis by High Performance Liquid Chromatogra phy/ Tandem Mass Spectrometr y (LC-MS/MS) [address] [place] [address] Chemistry Triglycerid es 150 mg/dL 7 - 149 12/05 H Interpretiv e Data: AGES 0-9: Desirable: < 75 mg/dL Borderline High: 75-99 mg/dL High: >/= 100 mg/dL AGES 10-19: Desirable: < 90 mg/dL Borderline High: 90-129 mg/dL High: >/= 130 mg/dL ADULTS: Desirable: < 150 mg/dL Borderline High: 150-199 mg/dL High: >/= 240 mg/dL Very High: >/= 500 mg/dL [address] [place] [address] Chemistry LDL/HDL 2 12/[address] [place] [address] Chemistry LDL 151 mg/dL 100 - 130 12/05 H Interpretiv e Data: AGES 0-19: Desirable: < 110 mg/dL Borderline High: 110-129 mg/dL High: >/= 130 mg/dL ADULTS: Desirable: <100 mg/dL Near/above optimal: 100-130 mg/dL Borderline High: 131-159 mg/dL High: 160-189 mg/dL Very High: 190 mg/dL [address] [place] [address] Chemistry HDL Cholesterol 69 mg/dL 40 - 59 12/05 H Interpretiv e Data: HDL (HIGH DENSITY LIPOPROTEIN ): ADULTS: Low: < 40 mg/dL High: >/= 60 mg/dL AGES 0 -19: Low: < 40 mg/dL Borderline Low: 40 - 45 mg/dL Acceptable: > 45 mg/dL [address] [place] [address] Chemistry Cholesterol Total 238 mg/dL 12/05 H Interpretiv e Data: According to the [employer] : AGES 0-19: Desirable: < 170 mg/dL Borderline High: 170-199 mg/dL High Blood Cholesterol : >/= 200 mg/dL ADULTS: Desirable < 200 mg/dL Borderline High: 200-239 mg/dL High Blood Cholesterol : >/= 240 mg/dL [facility] Chemistry Chol/HDL 3 mg/dL 12/05-3 [facility] Hematolog y Porter Absolute 0.4 x10^3/mc L 0.2 - 0.8103 12/05 N - [facility] Hematolog y Monocyte % Auto 9 % 1 - 12 12/05 N - [facility] Hematolog y Neutro Absolute 2.6 x10^3/mc L 2.0 - 7.0103 12/05 N - [facility] Hematolog y Neutrophil % Auto 56.8 % 46.0 - 77.0 12/05 N - [facility] Hematolog y Baso Absolute 0.0 x10^3/mc L 0.0 - 0.1103 12/05 N -3 [facility] Hematolog y Basophil % Auto 0.9 % 0.0 - 2.5 12/05 N - [facility] Hematolog y Eos Absolute 0.1 x10^3/mc L 0.0 - 0.7103 12/05 N -3 [facility] Hematolog y Eosinophil % Auto 1 % 0 - 5 12/05 N - [facility] Hematolog y Lymphocyte % Auto 31.5 % 20.0 - 40.0 12/05 N -3 [facility] Hematolog y Lymph Absolute 1.4 x10^3/mc L 1.2 - 4.0103 12/05 N -3 [facility] Hematolog y Differentia l? Auto (12/05/23 9:38 AM) 12/05 N - [facility] Hematolog y Hematocrit 42 % 40 - 49 12/05 N -3 [facility] Hematolog y Hemoglobin 13.6 g/dL 13.0 - 16.3 12/05 N 0055A-[address] [place], [place] [address]GRP- [facility] Hematolog y MCH 28 pg 28 - 33 12/05 N 0055A-[address] [place] [address]- D[facility] Hematolog y MCHC 32.6 g/dL 33.0 - 36.5 12/05 L 0055A-[address] [place] [address]- [facility] Hematolog y MCV 85 fL 80 - 97 12/05 N 0055A-[address] [place] [address] Hematolog y MPV 10.6 fL 7.4 - 10.4 12/05 H 0055A-[address] [place] [address] Hematolog y Platelets 209.0 x10^3/mc L 150.0 - 450.0103 12/05 N 5A-[address] [place] [address] Hematolog y RBC 4.9 x10^6/mc L 4.0 - 5.6106 12/05 N 0055A-[address] [place] [address] Hematolog y RDW 12.9 % 11.0 - 14.9 12/05 N 5A-[address] [place] [address] Hematolog y WBC 4.6 x10^3/mc L 4.0 - 11.0103 12/05 N 0055A-[address] [place] [address] Toxicolog y Branched PFOA Isomers LC None Detected 09/11 Result Comment: Reporting Limit: 0.10 ng/mL Synonym(s): Sb-PFOA; Perfluorooc tanoic Acid (PFOA) branched isomers General [place] population from [facility] () (c=1050) is typically below 0.20 ng/mL (95% CI, <0.10-0.20 ng/mL) (95th percentile) Analysis by High Performance Liquid Chromatogra phy/ Tandem Mass Spectrometr y (LC-MS/MS) [address] [place] [address] Toxicolog y ADONA LC None Detected 09/11 Result Comment: Reporting Limit: 0.10 ng/mL Synonym(s): 4,8-Dioxa-3 H-perfluoro nonanoate; Dodecafluor o-3H-4,8-di oxanonanoat e General [place] population from [facility] () (d=4854) is typically below 0.10 ng/mL (95th percentile) Analysis by High Performance Liquid Chromatogra phy/ Tandem Mass Spectrometr y (LC-MS/MS) -3 [facility] Toxicolog y PFHxA LC None Detected 09/11 Result Comment: Reporting Limit: 0.10 ng/mL Synonym(s): Perfluorohe xanoic Acid General [place] population from [facility] () (n=4720) is typically below 0.10 ng/mL (95th percentile) Analysis by High Performance Liquid Chromatogra phy/ Tandem Mass Spectrometr y (LC-MS/MS) -3 [facility] Toxicolog y PFNA LC 0.23 ng/mL 09/11 Result Comment: Reporting Limit: 0.10 ng/mL Synonym(s): Perfluorono nanoic Acid [facility] [place] population [facility] () (q=8884) is typically below 1.4 ng/mL (95% CI, 1.1-1.8 ng/mL) (95th percentile) Analysis by High Performance Liquid Chromatogra phy/ Tandem Mass Spectrometr y (LC-MS/MS) -[address] [place] [address] Toxicolog y PFHxS LC 1.8 ng/mL 09/11 Result Comment: Reporting Limit: 0.10 ng/mL Synonym(s): Perfluorohe xane Sulfonic Acid General [place] population [facility] () (w=7754) is typically below 3.7 ng/mL (95% CI, 3.3-5.6 ng/mL) (95th percentile) Analysis by High Performance Liquid Chromatogra phy/ Tandem Mass Spectrometr y (LC-MS/MS) -[address] [place] [address] Toxicolog y Linear PFOA Isomer LC 0.98 ng/mL 09/11 Result Comment: Reporting Limit: 0.10 ng/mL Synonym(s): n-PFOA; n-Perfluoro octanoic Acid (PFOA) linear isomer General [place] population from [facility] () (y=9519) is typically below 3.7 ng/mL (95% CI, 3.1-5.0 ng/mL) (95th percentile) Analysis by High Performance Liquid Chromatogra phy/ Tandem Mass Spectrometr y (LC-MS/MS) -[address] [place] [address] Toxicolog y Total PFOA Isomers LC 0.98 ng/mL 09/11 Result Comment: Synonym(s): Sum of linear and branched Perfluorooc tanoic Acid (PFOA) isomers General [place] population from [facility] () (z=[phone]) is typically below 3.77 ng/mL (95% CI, 3.17-5.07 ng/mL) (95th percentile) Analysis by High Performance Liquid Chromatogra phy/ Tandem Mass Spectrometr y (LC-MS/MS) -[address] [place] [address] Toxicolog y Total PFOS Isomers LC 4.8 ng/mL 09/11 Result Comment: Synonym(s): Sum of linear and branched Perfluorooc tane Sulfonic Acid (PFOS) isomers General [place] population from [facility] () (x=[phone]) is typically below 14.6 ng/mL (95% CI, 13.1-16.5 ng/mL) (95th percentile) Analysis by High Performance Liquid Chromatogra phy/ Tandem Mass Spectrometr y (LC-MS/MS) - [address] [place] [address] Toxicolog y Linear PFOS Isomer LC 3.8 ng/mL 09/11 Result Comment: Reporting Limit: 0.10 ng/mL Synonym(s): n-PFOS; n-Perfluoro octane Sulfonic Acid (PFOS) linear isomer Comment: Substance(s ) known to interfere with the identity and/or quantity of the reported result: 1-Methyl-PF HpS General [place] population [facility] () (w=5607) is typically below 10.4 ng/mL (95% CI, 9.4-12.0 ng/mL) (95th percentile) Analysis by High Performance Liquid Chromatogra phy/ Tandem Mass Spectrometr y (LC-MS/MS) -[address] [place] [address] Toxicolog y Branched PFOS Isomers LC 1.0 ng/mL 09/11 Result Comment: Reporting Limit: 0.10 ng/mL Synonym(s): Sm-PFOS; Perfluorome thylheptane Sulfonic Acid (PFOS) branched isomers General [place] population from [facility] () (g=[phone]) is typically below 4.5 ng/mL (95% CI, 3.8-5.4 ng/mL) (95th percentile) Analysis by High Performance Liquid Chromatogra phy/ Tandem Mass Spectrometr y (LC-MS/MS) [address] [place] [address] Toxicolog y PFDA LC None Detected 09/11 Result Comment: Reporting Limit: 0.10 ng/mL Synonym(s): Perfluorode canoic Acid General [place] population from [facility] () (d=2055) is typically below 0.60 ng/mL (95% CI, 0.50-0.90 ng/mL) (95th percentile) Analysis by High Performance Liquid Chromatogra phy/ Tandem Mass Spectrometr y (LC-MS/MS) [address] [place] [address] Toxicolog y MeFOSAA LC None Detected 09/11 Result Comment: Reporting Limit: 0.10 ng/mL Synonym(s): Me-PFOSA-Ac [place]; 2-(N-Methyl -perfluoroo ctane sulfonamido ) Acetic Acid General [place] population from [facility] () (t=7600) is typically below 0.60 ng/mL (95% CI, 0.50-0.70 ng/mL) (95th percentile) Analysis by High Performance Liquid Chromatogra phy/ Tandem Mass Spectrometr y (LC-MS/MS) [address] [place] [address] Toxicolog y PFUnDA LC None Detected 09/11 Result Comment: Reporting Limit: 0.10 ng/mL Synonym(s): PFUA; Perfluoroun decanoic Acid General [place] population from [facility] () (h=2793) is typically below 0.40 ng/mL (95% CI, 0.30-0.50 ng/mL) (95th percentile) Analysis by High Performance Liquid Chromatogra phy/ Tandem Mass Spectrometr y (LC-MS/MS) [address] [place] [address] Toxicolog y NASEM Summation Value LC 7.8 ng/mL 09/11 Result Comment: The National Academies of Science, Engineering , and Medicine (NASEM) recommends the following clinical guidance related to an additive sum value for MeFOSAA, PFHxS, PFOA (linear and branched isomers), PFDA, PFUnDA, PFOS (linear and branched isomers), and PFNA in serum or plasma: -Adverse health effects related to PFAS exposure are not expected at less than 2 ng/mL. -There is a potential for adverse effects, especially in sensitive populations , between 2 and 20 ng/mL. -There is an increased risk of adverse effects at greater than 20 ng/mL. Analysis by High Performance Liquid Chromatogra phy/ Tandem Mass Spectrometr y (LC-MS/MS) This test was developed and its performance characteris tics determined by [facility]. It has not been cleared or approved by the US Food and Drug Administrat [facility] [facility]. Digital data review may have taken place remotely by qualified [facility] staff utilizing a secure LYYNN connection for some or all of the reported results. This is in accordance with and follows CLIA regulations . Performed At: [address] [id number] Yessica Keller PhD Ph:[phone] 49 -[address] [place] [address] Toxicolog y PFDoDA LC None Detected 09/11 Result Comment: Reporting Limit: 0.10 ng/mL Synonym(s): PFDoA; Perfluorodo decanoic Acid General [place] population from [facility] ([phone]) (b=5152) is typically below 0.10 ng/mL (95th percentile) Analysis by High Performance Liquid Chromatogra phy/ Tandem Mass Spectrometr y (LC-MS/MS) -[address] [place] [address] Toxicolog y PFHpS LC 0.17 ng/mL 09/11 Result Comment: Reporting Limit: 0.10 ng/mL Synonym(s): Perfluorohe ptane Sulfonic Acid General [place] population from [facility] (2204-7443) (y=3951) is typically below 1.0 ng/mL (95% CI, 0.50-4.60 ng/mL) (95th percentile) Analysis by High Performance Liquid Chromatogra phy/ Tandem Mass Spectrometr y (LC-MS/MS) 5A-3 [facility] Dileep Urinalysi s UA Protein Negative mg/dL 09/11 N 0055A-[address] [place] [address] Urinalysi s UA RBC TNP 09/115A-[address] [place] [address] Urinalysi s UA Bili Negative ( 8:36 AM) 09/11 N 5A-[address] [place] [address] Urinalysi s UA Glucose Negative mg/dL 09/11 N 0055A-[address] [place] [address] Urinalysi s UA Spec [place] 1.015 1.001 - 1.035 09/11 N 5A-[address] [place] [address] Urinalysi s UA Color Yellow *NA* ( 8:36 AM) 09/[address] [place] [address]- D[facility] Urinalysi s UA Clarity Clear *NA* ( 8:36 AM) 09/11- [address] [place] [address] Urinalysi s UA Blood Negative ( 8:36 AM) 09/11 N -[address] [place] [address] Urinalysi s UA WBC TNP 09/11-[address] [place] [address] Urinalysi s UA Urobilinoge n 0.2 E.U./dL 0.2 - 1.0.. 09/11 N 5A-[address] [place] [address] Urinalysi s UA Ketones Negative mg/dL 09/11 N 5A-[address] [place] [address] Urinalysi s UA pH 7.0 *NA* ( 8:36 AM) 5 - 8 09/11-[address] [place] [id number] Urinalysi s UA Nitrite Negative ( 8:36 AM) 09/11 N 5A-[address] [place] [address]- Dileep Urinalysi s UA Leuk Esterase Negative ( 8:36 AM) 09/11 N 5A-[address] [place] [address] Vital Signs Combined list of inpatient and outpatient Vital Signs from Department of Defense and Veterans Affairs, ranging from 12 months to all on record, depending upon the facility. Vital Sign Value Date Comments Source Peripheral Pulse Rate 67 bpm 10/11/2024 15:42:00 [facility] Respiratory Rate 14 br/min 10/11/2024 15:42:00 [facility] Systolic Blood Pressure 101 mm[Hg] 10/11/2024 15:42:00 [facility] Diastolic Blood Pressure 68 mm[Hg] 10/11/2024 15:42:00 [facility] Temperature Oral 36.5 Lola 10/11/2024 15:42:00 [facility] Mean Arterial Pressure, Calc 79 mm[Hg] 10/11/2024 15:42:00 [facility] Temperature Oral 36.4 Lola 09/15/2023 16:28:00 [facility] Respiratory Rate 20 br/min 09/15/2023 16:28:00 [facility] Mean Arterial Pressure, Calc 88 mm[Hg] 09/15/2023 16:28:00 [facility] Peripheral Pulse Rate 75 bpm 09/15/2023 16:28:00 [facility] Systolic Blood Pressure 114 mm[Hg] 09/15/2023 16:28:00 [facility] Diastolic Blood Pressure 75 mm[Hg] 09/15/2023 16:28:00 [facility] Encounters Combined list of: 1) Encounters from Department of Veterans Affairs facilities going backup to the last 18 months, not all VA inpatient encounters are included; 2) Encounters from the Department of Defense facilities going backup to 280 months. Location Location Details Encounter Type Encounter Number Reason For Visit Attending Provider ADM Date DC Date Status Disposition Source [employer]([facility] [place] ) OUTPATIENT [id number] YOKO WOOD 06/24 Released w/o Limitations [employer](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 FLAVIO VARGAS 07/02 Released w/o Limitations [employer](F light Medicin e Clinic) [employer](FR- Occupatio nal Health) OUTPATIENT [id number] PRE/Fir efighte r FWA OSMAN PEDERSON 09/23 Released w/o Limitations [employer](F R- Occupat ional Health) [employer](FR- Immunizat ion Clinic) OUTPATIENT [id number] ppd JUN BUSH 10/01 Released w/o Limitations [employer](F R- Immuniz ation Clinic) [employer]([facility] OUTPATIENT [id number] [facility] CIV PART 2 ERLIN RAPP 10/03 Released w/o Limitations [employer]([facility]) [employer](Pri ght Medicine Clinic) OUTPATIENT [id number] [facility]/ [facility] MICHAEL CUNHA 08/09 Released w/o Limitations [employer](F light Medicin e Clinic) [employer]([facility] ght Medicine Clinic) OUTPATIENT [id number] part 2 [facility]/ [facility] LINA RICHARD Jerilyn 08/11 Released w/o Limitations [employer]([facility] light Medicin e Clinic) [employer]([facility] ght Medicine Clinic) OUTPATIENT [id number] part I OHLOS GATOS CAMPUSSATHYA A 08/02 Released w/o Limitations [employer]([facility] light Medicin e Clinic) [employer]([facility] ght Medicine Clinic) OUTPATIENT [id number] 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 part 2 MICHANIKKY Salty 10/31 Released w/o Limitations [employer](F light Medicin e Clinic) [employer]([facility] ght Medicine Clinic) OUTPATIENT [id number] [facility] 10/08 Released w/o Limitations [employer](F light Medicin e Clinic) [employer](Car diopulmon susan Lab) OUTPATIENT [id number] [facility] PANDA LANDERS LM 10/16 Released w/o Limitations [employer](C ardiopu lmonary Lab) [employer]([facility] ght Medicine Clinic) OUTPATIENT [id number] [facility] part I ADONIS ACEVES Arianna 10/09 Released w/o Limitations [employer](F light Medicin e Clinic) [employer] [id number] [facility] part II ARJUN NGO 10/17 Released w/o Limitations [employer](F light Medicin e Clinic) [employer](For ce Health Managemen t) OUTPATIENT [id number] Notes Entered by: OJDIE MONTES 06 Oct [id number] ------- ------- ------- ------- -- JODIE Cat 10/06 Released w/o Limitations [employer](F orce Health Managem ent) [employer] [facility] BAEZ ([facility]Sco tt Flight Medicine Tm) OUTPATIENT [id number] Notes Entered by: AZAR WAN 04 Aug 2013 0736 ------- ------- ------- ------- -- ER f/u HERLINDA LOCKHART 08/04 Released with Work/Duty Limitations [facility] Medical Group [facility])(S cott Flight Medicin e Tm) [facility])([facility] ) OUTPATIENT [id number] Notes Entered by: ARACELIS GALE 12 Aug 2013 1305 ------- ------- ------- ------- -- Walk-in : FF BELEN THOMAS 08/12 Released w/o Limitations [facility])(S cott Flight Medicin e Tm) [facility])([facility] Flight Medicine ) TELE CONSULT [id number] Notes Entered by: NYA TAMEZ 31 Aug 2013 1526 ------- ------- ------- ------- -- Hearing Test JORDY GARDINER 08/[address] [place] [address] Group [facility])(S cott Flight Medicin e Tm) [facility] Medical [employer] [facility])([facility] ) [facility]PATIENT [id number] [facility] 09/01 Released w/o Limitations [facility])(S cott Flight Medicin e Tm) [facility] Medical [employer] [facility])([facility] ) OUTPATIENT [id number] [facility] FFDEMALCOLM COBOS 09/09 Released w/o Limitations [facility] Group [facility])(S cott Flight Medicin e Tm) [facility] Medical [employer] [facility])([facility] Flight [facility] ) OUTPATIENT [id number] [facility] FFDEE MALCOLM KONG 08/03 Released w/o Limitations [facility] Medical [employer] [facility])(S cott Flight Medicin e Tm) [facility] Medical [employer] [facility])(Bas e Operation al Medicine Clin) OUTPATIENT [id number] [facility] 07/05 Released w/o Limitations [facility] Group [facility])(B ase Operati onal Medicin e Clin) [address] [place] [address])(Aud iology Procedure s) OUTPATIENT [id number] Notes Entered by: RAZA BARNETT 08 Jul 2016 1433 ------- ------- ------- ------- -- Annual Audiogr am YULIET BETTENCOURT 07/08 Released w/o Limitations [facility] Group [facility] ([facility]A udiolog y Procedu res) [address] [place] [address])(Bas e Operation al Medicine Clin) OUTPATIENT [id number] [facility] JAVIER LOAIZA 07/01 Released w/o Limitations [facility] ([facility]B ase Operati onal Medicin e Clin) [address] [place] [address])(Aud iology Procedure s) OUTPATIENT [id number] [facility] Annual ROSARIO NIELSEN 07/03 Released w/o Limitations [facility])(A udiolog y Procedu res) [address] [place] [address])(Aud iology Procedure s) OUTPATIENT [id number] Notes Entered by: Brittany MASSEY 25 Jun 2018 1023 ------- ------- ------- ------- -- annual WESLEY HERNANDEZ 06/25 [facility]A udiolog y Procedu res) [address] [place] [address])(Bas e Operation al Medicine Clin) OUTPATIENT [id number] PREETI JOSHI 07/14 Released w/o Limitations [address] [place] [address])(B ase Operati onal Medicin e Clin) [address] [place], [place] [address]B [facility]Sco tt Flight Medicine ) OUTPATIENT [id number] pre 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 tt Flight Medicine Tm) OUTPATIENT [id number] CHEST X RA, EKG, LABS STANISLAW PUENTE 02/08 Released w/o Limitations [employer] [facility] B ([facility]S cott Flight Medicin e Tm) [facility] B ([facility] tt Flight Medicine Tm) TELE CONSULT [id number] Notes Entered by: STANISLAW PUENTE 25 Feb 2019 1014 ------- ------- ------- ------- -- Result STANISLAW PUENTE 02/25 [facility] Group Dileep [facility] ([facility]S cott Flight Medicin e Tm) [place] Int Med PCMH Team 1) OUTPATIENT [id number] perodic blood in stool for a few months MACY RIVERA 12/13 Released w/o Limitations [place] ([facility] Int Med PCMH Team 1) [place](O ccupation al Medicine) OUTPATIENT [id number] 8 707B,,, ,,HB ERNESTO MILES 01/10 Released w/o Limitations [place] (Occupa tional Medicin e) [place](H earing Conservat ion) OUTPATIENT [id number] 4 2215,,, ,,VG ANA LUISA NARAYAN 01/11 Released w/o Limitations [place] (Hearin g Conserv ation) [place](O ccupation al Medicine) OUTPATIENT [id number] 4 707,,,, ,VG LUNA CHOW 02/10 Released w/o Limitations [place] (Occupa tional Medicin e) [place]([facility] Pediatric s PCMH Team 1) TELE CONSULT [id number] Notes Entered by: SOLIS ARCHER 24 Feb 2020 1455 ------- ------- ------- ------- -- SOLIS Prasad 02/23 [place] ([facility] Pediatr ics PCMH Team 1) [facility] Int Med PCMH Team 1) TELE CONSULT [id number] Notes Entered by: EMILY TORRES 15 Mar 2020 1307 ------- ------- ------- ------- -- For your review. MORENO LYON 03/15 Released to Self Care [facility] ([facility] Int [facility] PCM Team 1) [facility] Int [facility] PCM Team 1) OUTPATIENT [id number] [facility] : f/u GI sypmtom s, sore throat MACY RIVERA 06/30 Immediate Referral [facility] ([facility] Int [facility] PCMH Team 1) [facility](O psurge Respirato ry Clinic) OUTPATIENT [id number] sore throatx 3 days URMILA OLIVAREZ 06/30 Sick at Home/Quarter s [facility] (Opsurg e Respira tory Clinic) [facility] Int [facility] PCMH Team 1) OUTPATIENT [id number] Face to Face: GI Concern s RAJAT HORN 09/18 Released w/o Limitations [facility] ([facility] Int [facility] PCM Team 1) [facility] Int [facility] PCMH Team 1) TELE CONSULT [id number] Notes Entered by: JACOB GOMEZ 21 Sep 2020 0956 ------- ------- ------- ------- -- Lab Results YOGI ALVAREZ 09/21 Released to Self Care [facility] ([facility] Int [facility] PCM Team 1) [facility] Gastroent erology Clinic) OUTPATIENT [id number] Unspeci fied abdomin al pain MIKI STEVENSON 10/10 Released w/o Limitations [facility] ([facility] Gastroe nterolo gy Clinic) [facility]) OUTPATIENT [id number] Pre-emp loyment /FF/OHA - PFT needed AMPARO MOHANSANTY SR REJI 12/13 [place]ased w/o Limitations [facility] Hearing Conservat ion) OUTPATIENT [id number] AUDIOGR AM LUZALVIN 12/26 Released w/o Limitations [facility] (Ka Hearing Conserv ation) [facility](O ccupation al Medicine) OUTPATIENT [id number] 7 707P,72 0P,,,,J SP ANA LUISA NARAYAN 09/10 Released w/o Limitations [facility] (Occupa tional Medicin e) [facility](H earing Conservat ion) OUTPATIENT [id number] Notes Entered by: Lorena TEMPLE 13 Sep 2021 0922 ------- ------- ------- ------- -- 503 TASNEEM TEMPLE 09/13 Released w/o Limitations [facility] (Hearin g Conserv ation) [facility](H earing Conservat ion) OUTPATIENT [id number] Notes Entered by: PAUL MILES 17 Sep 2021 0855 ------- ------- ------- ------- -- 512 ERNESTO MILES 09/16 Released w/o Limitations [facility] (Hearin g Conserv ation) [facility](O ccupation al Medicine) OUTPATIENT [id number] 6 707,720 ,,,,VG VENU CATES 09/25 Released w/o Limitations [facility] (Occupa tional Medicin e) [facility](O ccupation al Medicine) OUTPATIENT [id number] 1 707p,71 6p,,,,e KASSANDRA Levy 08/05 Released w/o Limitations [facility] (Occupa tional Medicin e) [facility] Imms) OUTPATIENT [id number] Notes Entered by: MADAN LAM V 30 Aug 2022 1004 ------- ------- ------- ------- -- BRYANT MERCER 08/30 Released w/o Limitations [facility] ([facility] Imms) [place]H earing Conservat ion) OUTPATIENT [id number] Notes Entered by: PAUL MILES 30 Aug 2022 1038 ------- ------- ------- ------- -- 503 ERNESTO MILES 08/30 Released w/o Limitations [facility] (Hearin g Conserv ation) [facility] Imms) OUTPATIENT [id number] Notes Entered by: AMY SANCHEZ 30 Aug 2022 1154 ------- ------- ------- ------- -- LINDA CALDERON 08/30 [place]ased w/o Limitations [facility] ([facility]) [facility](O ccupation al Medicine) OUTPATIENT [id number] 5 707P,71 6P,,,,J LUNA QUISPE 08/30 Released w/o Limitations [facility] (Occupa tional Medicin e) [facility] Clinic [id number] EXAM/ GONSALO Mott, 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, 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 ANDREW [place] HEALTH ASSESSM ENT (PHA) FELY 09/08 Discharge Disposition: Home or Self Care [facility] vira Clinic [id number] RAMESH PEREIRA 09/17 Discharge Disposition: Home or Self Care [facility] vira Between Visit [id number] 10/01 Discharge Disposition: Home or Self Care [facility]Sc [facility] Clinic [id number] Iron deficie ncy anemia, unspeci fied,EX AM, FORMAL 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 HEALTH PROGRAM INCLUDI [facility] ATION PROGRAM , DESII C FOR CONTINU ED SURVEIL STANLEY FOR 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 WORKPLA DREW LESLIE HARGROVELu 10/11 Discharge Disposition: Home or Self Care [facility] Care Not Rendered [id number] [facility] 10/11 Discharge Disposition: Home or Self Care 5C-3 [facility] D[facility] Procedures Combined list of: 1) Procedures from Department of Veterans Affairs facilities going back up to thelast 18 months, not all VA non-surgical procedures are included; 2) All procedures from the Department of Defense facilities. Procedure Procedure Type Code Date Perfomer Comments Sourc e BEHAVIORAL HEALTH PREVENTION EDUCATION SERVICE (DELIVERY OF SERVICES WITH TARGET POPULATION TO AFFECT KNOWLEDGE, ATTITUDE AND/OR BEHAVIOR) 2002 [facility] ALCOHOL AND/OR DRUG ASSESSMENT 2001 [facility] ELECTROCARDIOGRAM, ROUTINE ECG WITH AT LEAST 12 LEADS; WITH INTERPRETATION AND REPORT 2018 [facility] SCREENING TEST OF VISUAL ACUITY, QUANTITATIVE, BILATERAL 2017 [facility] PURE TONE AUDIOMETRY (THRESHOLD), AUTOMATED; AIR ONLY 2017 [facility] BRIEF EMOTIONAL/BEHAVIORAL ASSESSMENT (EG, DEPRESSION INVENTORY, ATTENTION-DEFICIT/HY PERACTIVITY DISORDER [ADHD] SCALE), WITH SCORING AND DOCUMENTATION, PER STANDARDIZED INSTRUMENT 2016 [facility] PURE TONE AUDIOMETRY (THRESHOLD), AUTOMATED; AIR ONLY 2016 [facility] SPIROMETRY, INCLUDING GRAPHIC RECORD, TOTAL AND TIMED VITAL CAPACITY, EXPIRATORY FLOW RATE MEASUREMENT(S), WITH OR WITHOUT MAXIMAL VOLUNTARY VENTILATION 2015 [facility] SPIROMETRY, INCLUDING GRAPHIC RECORD, TOTAL AND TIMED VITAL CAPACITY, EXPIRATORY FLOW RATE MEASUREMENT(S), WITH OR WITHOUT MAXIMAL VOLUNTARY VENTILATION 2014 [facility] PURE TONE AUDIOMETRY (THRESHOLD); AIR ONLY 2013 [facility] SPIROMETRY, INCLUDING GRAPHIC RECORD, TOTAL AND TIMED VITAL CAPACITY, EXPIRATORY FLOW RATE MEASUREMENT(S), WITH OR WITHOUT MAXIMAL VOLUNTARY VENTILATION 2012 [facility] SPIROMETRY, INCLUDING GRAPHIC RECORD, TOTAL AND TIMED VITAL CAPACITY, EXPIRATORY FLOW RATE MEASUREMENT(S), WITH OR WITHOUT MAXIMAL VOLUNTARY VENTILATION 2009 [facility] VIS FUNCT SCREEN,AUTOMAT/SEMI- AUTOMAT BILAT QUANT DETERM VISUAL ACUITY,OCULAR ALIGN,COLOR VISION,PSEUDOISOCHRO MAT PLATES,& FIELD VIS (MAY INC ALL/SOME SCRN DETERM FOR CONTRAST SENSITIV,VIS UND GLARE) 2008 [facility] SCREENING TEST OF VISUAL ACUITY, QUANTITATIVE, BILATERAL 2008 [facility] NONINVASIVE EAR OR PULSE OXIMETRY FOR OXYGEN SATURATION; SINGLE DETERMINATION 2005 [facility] IMMUNIZATION ADMINISTRATION (INCLUDES PERCUTANEOUS, INTRADERMAL, SUBCUTANEOUS, OR INTRAMUSCULAR INJECTIONS); 1 VACCINE (SINGLE OR COMBINATION VACCINE/TOXOID) 2005 [facility] FITTING OF SPECTACLES, EXCEPT FOR APHAKIA; MONOFOCAL 2005 [facility] TETANUS, DIPHTHERIA TOXOIDS AND ACELLULAR PERTUSSIS VACCINE (TDAP), WHEN ADMINISTERED TO INDIVIDUALS 7 YEARS OR OLDER, FOR INTRAMUSCULAR USE 2021 [facility] PURE TONE AUDIOMETRY (THRESHOLD), AUTOMATED; AIR ONLY 2021 [facility] VIS FUNCT SCREEN,AUTOMAT/SEMI- AUTOMAT BILAT QUANT DETERM VISUAL ACUITY,OCULAR ALIGN,COLOR VISION,PSEUDOISOCHRO MAT PLATES,& FIELD VIS ([employer] ALL/SOME SCRN DETERM FOR CONTRAST SENSITIV,VIS UND GLARE) 2021 [facility] INFLUENZA VIRUS VACCINE, QUADRIVALENT (IIV4), SPLIT VIRUS, PRESERVATIVE FREE, 0.5 ML DOSAGE, FOR INTRAMUSCULAR USE 2021 [facility] PATIENT EDUCATION, NOT OTHERWISE CLASSIFIED, NON-PHYSICIAN PROVIDER, INDIVIDUAL, PER SESSION 2020 [facility] PATIENT EDUCATION, NOT OTHERWISE CLASSIFIED, NON-PHYSICIAN PROVIDER, INDIVIDUAL, PER SESSION 2020 [facility] COLOR VISION EXAMINATION, EXTENDED, EG, ANOMALOSCOPE OR EQUIVALENT 2020 [facility] PATIENT EDUCATION, NOT OTHERWISE CLASSIFIED, NON-PHYSICIAN PROVIDER, INDIVIDUAL, PER SESSION 2020 [facility] ELECTROCARDIOGRAM, ROUTINE ECG WITH AT LEAST 12 LEADS; WITH INTERPRETATION AND REPORT 2020 [facility] WAIVER SERVICES; NOT OTHERWISE SPECIFIED (NOS) 2019 [facility] BRIEF COMM TECH-BASE SERV,E.G. VIRT CHK-IN,BY PHYS/OTH QUAL HCP,RPT E&M SERV,PROV TO EST PT,NOT ORIG FRM REL E/M SERV PROV W/IN PREV 7DAY NOR LEAD TO E/M SRV/PX W/IN NEXT 24HR/SOON OLI; 5-10 MIN DISC 2019 [facility] SPIROMETRY, INCLUDING GRAPHIC RECORD, TOTAL AND TIMED VITAL CAPACITY, EXPIRATORY FLOW RATE MEASUREMENT(S), WITH OR WITHOUT MAXIMAL VOLUNTARY VENTILATION 2019 [facility] PATIENT EDUCATION, NOT OTHERWISE CLASSIFIED, NON-PHYSICIAN PROVIDER, INDIVIDUAL, PER SESSION 2019 [facility] SPIROMETRY, INCLUDING GRAPHIC RECORD, TOTAL AND TIMED VITAL CAPACITY, EXPIRATORY FLOW RATE MEASUREMENT(S), WITH OR WITHOUT MAXIMAL VOLUNTARY VENTILATION 2019 [facility] Electrocardiogram Electrocardiogram 20295 02/09 STANISLAW PUENTE [facility] Spirometry Spirometry 76416 2017 NASIR [place] [facility] Screening Test Of Visual Acuity, Quantitative, Bilateral Screening Test Of Visual Acuity, Quantitative, Bilateral 19049 2017 NASIR [place] [facility] Threshold Audiogram (Pure Tone) Automated Threshold Audiogram (Pure Tone) Automated 0208T 2017 WESLEY GUDINO [facility] Screening Test Of Visual Acuity, Quantitative, Bilateral Screening Test Of Visual Acuity, Quantitative, Bilateral 87275 2016 JAVIER VILLELA Extensive Color Vision Testing Extensive Color Vision Testing 39603 2016 JAVIER VILLELA [facility] Spirometry Spirometry 81950 2016 JAVIER VILLELA [facility] Spirometry Spirometry 04433 2015 PRINCESS JACKSON Threshold Audiogram (Pure Tone) Threshold Audiogram (Pure Tone) 39812 2015 [facility]INCESS [facility] Extensive Color Vision Testing Extensive Color Vision Testing 44578 2015 PRINCESS [facility] Screening Test Of Visual Acuity, Quantitative, Bilateral Screening Test Of Visual Acuity, Quantitative, Bilateral 68399 2015 PRINCESS [facility] Screening Test Of Visual Acuity, Quantitative, Bilateral Screening Test Of Visual Acuity, Quantitative, Bilateral 16726 2014 MALCOLM KONG Threshold Audiogram (Pure Tone) Threshold Audiogram (Pure Tone) 93314 2014 MALCOLM KONG [facility] Spirometry Spirometry 70170 2014 MALCOLM KONG Threshold Audiogram (Pure Tone) Threshold Audiogram (Pure Tone) 92981 2013 MALCOLM KONG Screening Test Of Visual Acuity, Quantitative, Bilateral Screening Test Of Visual Acuity, Quantitative, Bilateral 30320 2013 MALCOLM KONG [facility] Spirometry Spirometry 03804 2013 MALCOLM KONG Julita Spirometry Spirometry 78389 2012 BELEN GANDHI Threshold Audiogram (Pure Tone) Threshold Audiogram (Pure Tone) 40664 2012 BELEN GANDHI Tonometry Tonometry 83021 2012 BELEN GANDHI Visual Function Screening Visual Function Screening 78917 2012 BELEN GANDHI Screening Test Of Visual Acuity, Quantitative, Bilateral Screening Test Of Visual Acuity, Quantitative, Bilateral 40335 2012 BELEN GANDHI Electrocardiogram Electrocardiogram 45699 09/01 BELEN GANDHI Spirometry Spirometry 94339 2010 ARJUN NGO Threshold Audiogram (Pure Tone) Threshold Audiogram (Pure Tone) 14501 2010 [employer]JUN [employer] Spirometry Spirometry 20253 2009 SATHYA FAN Screening Test Of Visual Acuity, Quantitative, Bilateral Screening Test Of Visual Acuity, Quantitative, Bilateral 01205 2009 SATHYA FAN Threshold Audiogram (Pure Tone) Threshold Audiogram (Pure Tone) 31362 2009 SATHYA FAN Spirometry Spirometry 85663 2009 PANDA LANDERS LM Visual Function Screening Visual Function Screening 33147 2008 NIKKY MUSE Threshold Audiogram (Pure Tone) Threshold Audiogram (Pure Tone) 05863 2008 NIKKY MUSE Screening Test Of Visual Acuity, Quantitative, Bilateral Screening Test Of Visual Acuity, Quantitative, Bilateral 18684 2008 SATHYA FAN Threshold Audiogram (Pure Tone) Threshold Audiogram (Pure Tone) 55494 2008 SATHYA FAN Pulse Oximetry Pulse Oximetry 74032 2005 NIKKY KIM Tuberculin PPD Cell Mediated Immunity Measurement Of Gamma Interferon Tuberculin PPD Cell Mediated Immunity Measurement Of Gamma Interferon 31155 2005 JUN BUSH Immunization Administration One Vaccine Immunization Administration One Vaccine 20046 2005 JUN BUSH Determination Of Refractive State Determination Of Refractive State 37709 2005 PREETI BALDERRAMA [facility] Spectacles Services Fitting Monofocals (Not For Aphakia) Spectacles Services Fitting Monofocals (Not For Aphakia) 86418 2005 PREETI BALDERRAMA [facility] Ophthalmological New Patient Start Comprehensive Care Ophthalmological New Patient Start Comprehensive Care 79984 2005 PREETI BALDERRAMA [facility] Threshold Audiogram (Pure Tone) Automated Threshold Audiogram (Pure Tone) Automated 0208T ANA LUISA NARAYAN [facility] Patient education, not otherwise cla ified, non-physician provider, individual, per se ion ANA LUISA NARAYAN [facility] Visual Function Screening Visual Function Screening 27645 [facility] ERNESTO EISENBERGNANCY [facility] Extensive Color Vision Testing Extensive Color Vision Testing 18432 [facility] Visual Regan Test Limited Examination Visual Regan Test Limited Examination 76664 [facility] ERNESTO LIU [facility] ECG Performance of Tracing Only ECG Performance of Tracing Only 82508 [facility] ERNESTO EISENBERGNANCY [facility] Spirometry Spirometry 27445 [facility] A e ment & Intervention Use Of Tobacco A e ed Assessment & Intervention Use Of Tobacco Assessed 1000F [facility] Preventive Medicine Physical Exam Vital Signs Recorded Preventive Medicine Physical Exam Vital Signs Recorded 2010 [facility] Preventive Med Documented/Reviewed Immunity To Hepatitis B Preventive Med Documented/Reviewed Immunity To Hepatitis B 3216F [facility] [place] Vaccine Series Complete Hepatitis B Vaccine Series Complete 4157F [facility] Electrocardiogram Electrocardiogram 86014 [facility] Screening Test Of Visual Acuity, Quantitative, Bilateral Screening Test Of Visual Acuity, Quantitative, Bilateral 82744 NDANA LUISA LOPEZ [facility] Preventive Medicine Counseling About Risk Of Alcohol Consumption Preventive Medicine Counseling About Risk Of Alcohol Consumption 4158F VENU CATES [facility] Immunization Administration One Vaccine Immunization Administration One Vaccine 17269 MARTINA KAHN [facility] Tdap Vaccine Tdap Vaccine 95786 NAT MONTES Tdap; Series #: 1; 0.5 mL; IM; Left Arm; Mfg: [employer]; Lot: [id number]; VIS given (Rosalee: 06/22/2021). [facility] Pulmonary Function Tests Pulmonary Function Tests 81035 LUNA CHOW [facility] Patient Education - Alcohol Patient Education - Alcohol 4158F GERALDO LUNA [facility] No data available for this section Ambulato ry Pharmacy Social History Combined list of available smoking, tobacco, and other social history from Department of Defense and Veterans Affairs facilities. Social History Type Response Date Comment Sourc e This section is an empty soc ial history section. [facility] Sexual Orientation Ambula tory Pharmacy Gender identity Ambulator y Pharmacy Sex Representation Male (finding) Un known Organization Assessment and Plan Combined list of future care activities from Department of Defense and Veterans Affairs facilities (e.g., assessment and plan notes, appointments, orders, and referrals). Additional future care activities may be listed in the Plan of Care section. Result Assessment and Plan Date Source Assessment and Plan Extracted from:Title : [facility] [place] - OHE Author: ANGELO HERRERA MD Date: 10/11/24 1. 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 They are well today w/o acute or chronic concerns. Member has been seeing PCM for anemia - had iron infusion recently. GI workup completed with EGD, colonoscopy, pill endoscopy - no bleeding detected. Feels great after iron infusion. No other issues.? They deny any occupational health or safety concerns. N o major c hemical spills, HAZMAT incidents since last OHE. No lung injuries/samuels since last OHE. Member reports that they have completed annual respirator fit testing and that the respirator fits well. Denies chest pain with exercise, syncope, shortness of breath, chronic cough. Reports good mood, sleep quality. No change in vision. No hearing concerns. Denies abdominal pain, pain with swallowing, vomiting, chronic diarrhea, blood in stool. Denies chronic joint pain, swelling, reduced range of motion. Denies chronic back and neck pain. No radiculopathies, has never had disabling back pain. No fevers/chills/night sweats. No unexplained weight loss. Physical Exam: FF OHE EXAM AREA FINDINGS Vital signs (if hypertensive, do EKG) W NL Head and general body appearance, screen for deformities that could affect respirator/eyewear/PPE use W NL Ears, nose, throat, oral cavity, teeth, gums W NL Eyes with funduscopic exam to assess vasculature, confrontational regan c ompleted by optometry Neck ROM, thyroid W NL Heart, lungs, thorax W NL Abdomen to assess for ventral and inguinal hernia n o concerns Skin W NL Extremities and spine with their ROM and strength W NL Balance, DTRs, gait, coordination. W NL Pulses at wrists W NL Ability to communicate including general ability to articulate understandably W NL Behavior and affect W NL Reviewed visual acuity screening and color vision. Must have Distance v isual a cuity c orrectable t o 2 0/20 i n o ne e ye a nd 2 0/30 i n the o ther. c ompleted w/ optometry Sep 2024, meeting standards Tetanus and diphtheria vaccination (status checked at baseline and booster every ten years) U TD Hepatitis A and B vaccination (status checked at baseline and verify annually) U TD ASCVD score (if >10% SEND FOR EST) 0 .6% Smoking status (if positive, offer enrollment in AF Smoking Cessation Program) N /A EKG completed if 40 or older or has hypertension c ompleted 2007, no new screening needed Spirometry W NL today Reviewed labs a ddressed below Reviewed audiogram (conducted by [facility]) H 1 , no STS ASSESSMENT: Recommend f/u w/ PCM with any health concerns. Cleared for duty w/o limitations. 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 F/u PRN for occupational health or safety concerns. Pt gave verbal understanding, agreed to plan of care, and all questions answered to patient s satisfaction. IMR: UTD PRAP disposition: n/a Aeromedical disposition: n/a Reference: NFPA 1582 2. M icrocytic anemia Chronic issue, stable Pt following with civilian provider. GI workup unremarkable, no source of bleeding identified. S/p iron infusion, marked difference noted in terms of fatigue. No chest pain, SOB. Pt otherwise healthy. No f urther workup conducted today, continue following w/ PCM and GI as indicated. //SIGNED// Capt Angelo Hodgson MD Flight Surgeon, Family Physician [address], [place], [place] Extracted from:Title: OHE/DFE Author: MIKI VALERO OD Date: 09/08/24 1. 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 D iagnosis: 1 . 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 M ember denied signs or symptoms of [place]-related illness or injury. 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 No Exposure concerns noted and wears PPE at all required times. N FPA 1582 reviewed, and no new occupational health exposures were identified. P: - R espiratory Protection Screening Questionnaire - Completed - E CG - Baseline completed/repeat not required - S pirometry - M eets N FPA criteria - A udiogram - H1 w /o STS - L abs Reviewed - WNL - P FAS Test - C ompleted - M edications reconciled - R eturn to clinic as needed Future Scheduled TestsLaboratoryPFAS [id number] 08/23/24Urinalysis with Microscopic and Culture if Indicated 10/04/24Urinalysis with Microscopic and Culture if Indicated 08/23/24Comprehensive Metabolic Panel 10/04/24 03/28/2025 [id number] Assessment and Plan Extracted from:Title : [facility] - OHE Author: ANGELO HERRERA MD Date: 10/11/24 1. 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 They are well today w/o acute or chronic concerns. Member has been seeing PCM for anemia - had iron infusion recently. GI workup completed with EGD, colonoscopy, pill endoscopy - no bleeding detected. Feels great after iron infusion. No other issues.? They deny any occupational health or safety concerns. N o major c hemical spills, HAZMAT incidents since last OHE. No lung injuries/samuels since last OHE. Member reports that they have completed annual respirator fit testing and that the respirator fits well. Denies chest pain with exercise, syncope, shortness of breath, chronic cough. Reports good mood, sleep quality. No change in vision. No hearing concerns. Denies abdominal pain, pain with swallowing, vomiting, chronic diarrhea, blood in stool. Denies chronic joint pain, swelling, reduced range of motion. Denies chronic back and neck pain. No radiculopathies, has never had disabling back pain. No fevers/chills/night sweats. No unexplained weight loss. Physical Exam: FF OHE EXAM AREA FINDINGS Vital signs (if hypertensive, do EKG) W NL Head and general body appearance, screen for deformities that could affect respirator/eyewear/PPE use W NL Ears, nose, throat, oral cavity, teeth, gums W NL Eyes with funduscopic exam to assess vasculature, confrontational regan c ompleted by optometry Neck ROM, thyroid W NL Heart, lungs, thorax W NL Abdomen to assess for ventral and inguinal hernia n o concerns Skin W NL Extremities and spine with their ROM and strength W NL Balance, DTRs, gait, coordination. W NL Pulses at wrists W NL Ability to communicate including general ability to articulate understandably W NL Behavior and affect W NL Reviewed visual acuity screening and color vision. Must have Distance v isual a cuity c orrectable t o 2 0/20 i n o ne e ye a nd 2 0/30 i n the o ther. c ompleted w/ optometry Sep 2024, meeting standards Tetanus and diphtheria vaccination (status checked at baseline and booster every ten years) U TD Hepatitis A and B vaccination (status checked at baseline and verify annually) U TD ASCVD score (if >10% SEND FOR EST) 0 .6% Smoking status (if positive, offer enrollment in AF Smoking Cessation Program) N /A EKG completed if 40 or older or has hypertension c ompleted 2007, no new screening needed Spirometry W NL today Reviewed labs a ddressed below Reviewed audiogram (conducted by [facility]) H 1 , no STS ASSESSMENT: Recommend f/u w/ PCM with any health concerns. Cleared for duty w/o limitations. 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 F/u PRN for occupational health or safety concerns. Pt gave verbal understanding, agreed to plan of care, and all questions answered to patient s satisfaction. IMR: UTD PRAP disposition: n/a Aeromedical disposition: n/a Reference: NFPA 1582 2. M icrocytic anemia Chronic issue, stable Pt following with civilian provider. GI workup unremarkable, no source of bleeding identified. S/p iron infusion, marked difference noted in terms of fatigue. No chest pain, SOB. Pt otherwise healthy. No f urther workup conducted today, continue following w/ PCM and GI as indicated. //SIGNED// Capt Angelo Hodgson MD Flight Surgeon, Family Physician [address], [place], [place] Extracted from:Title: OHE/DFE Author: MIKI VALERO, OD Date: 09/08/24 1. 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 D iagnosis: 1 . 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 M ember denied signs or symptoms of [place]-related illness or injury. 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 No Exposure concerns noted and wears PPE at all required times. N FPA 1582 reviewed, and no new occupational health exposures were identified. P: - R espiratory Protection Screening Questionnaire - Completed - E CG - Baseline completed/repeat not required - S pirometry - M eets N FPA criteria - A udiogram - H1 w /o STS - L abs Reviewed - WNL - P FAS Test - C ompleted - M edications reconciled - R eturn to clinic as needed Future Scheduled TestsLaboratoryPFAS [id number] 08/23/24Urinalysis with Microscopic and Culture if Indicated 10/04/24Urinalysis with Microscopic and Culture if Indicated 08/23/24Comprehensive Metabolic Panel 10/04/24 03/28/2025 Unknown Organization Functional Status Combined list of recent functional and cognitive assessments recorded at Department of Defense and Veterans Affairs (VA).VA Functional [place] Measurement (FIM) Scale: 1 = Total Assistance (Subject = 0% +), 2 = Maximal Assistance (Subject = 25% +), 3 = Moderate Assistance (Subject = 50% +), 4 = Minimal Assistance (Subject = 75% +), 5 = Supervision, 6 = Modified [place] (Device), 7 = Complete [place] (Timely, Safely). Assessment Date/Time Source Assessment Type Assessment Skill Assessment Score Assessment Details No data available for this section
--- OUTSIDE RECORDS SUMMARY | 2025-03-28 11:47 | XMS_ITS | Referral Summary ---
Author Organization [facility] [address] Address [address] [place] [address] Phone Care Team Providers Care Design Architect Name Role Phone Yadiel Eaton MD Primary Care Provider [phone] Allergies No known active allergies Medications hydrocortisone [...] l Culture-based MDCK, Antibiotic Free, Intramuscular 01/03/2019 Danish Encephalitis IM 02/09/2019 MMR 08/06/2002 Meningococcal ACWY, Unspecified 07/30/2002 PPD TEST 07/23/2005,06/27/2004,07/30/2002 Td, Unspecified 07/30/2002 Tdap 11/19/2011 Tetanus toxoid, adsorbed 02/16/2012 Typhoid, Unspecified 10/18/2003 Social History Tobacco Use Types Packs/Day Years [...] on file Legal 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 Gender Identity Not on file Sexual Orientation Not on file Last Filed Vital Signs Vital Sign Reading Time Taken Comments Blood Pressure 115/80 10/06/2023 11:55 AM MATH INSTRUCTOR Pulse 65 10/06/2023 11:55 AM MATH INSTRUCTOR Temperature 36.8 C (98.3 F) 10/06/2023 11:55 AM MATH INSTRUCTOR Respiratory Rate 18 10/06/2023 11:55 AM MATH INSTRUCTOR Oxygen Saturation 100% 10/06/2023 11:55 AM MATH INSTRUCTOR Inhaled Oxygen Concentration - - Weight 97.5 kg (215 lb) 10/06/2023 10:01 AM MATH INSTRUCTOR Height 177.8 cm (5' 10 ) 10/06/2023 10:01 AM MATH INSTRUCTOR Body Mass Index 30.85 10/06/2023 10:01 AM MATH INSTRUCTOR Plan of Treatment Not on file Additional Health Concerns Infection Onset Date Last Indicated MDR gram neg/ESBL Comment:Patients who received care at a healthcare facility outside of the [place] will be placed in Contact Precautions until infection or colonization with specific highly resistant bacteria can be ruled out. Infection Prevention will arrange screening. Please contact Infection Prevention. 10/03/2023 10/03/2023 Insurance [employer] OOS [employer] OOS [employer] FEDERAL Advance Directives For more information, please contact: [phone] * Full Code (Latest Code Status on File) Date Activated Date Inactivated Comments 10/06/2023 9:57 AM 10/06/2023 4:26 PM * Full Code Date Activated Date Inactivated Comments 10/06/2023 9:57 AM 10/06/2023 9:57 AM Care Teams Design Architect Relationship Specialty Start Date End Date Yadiel Eaton MD PCP - General Family Practice 10/06/23
[2025-03-28 11:53] LABS: Hematocrit 42.2 % (42.0-52.0); Hemoglobin 14.1 g/dL (14.0-18.0); Mean Corpuscular HGB Conc 33.4 g/dl (32-36); Mean Corpuscular Volume 86.8 fl (80-100); Platelet Count Result 189 k/mm3 (150-375); Red Blood Count 4.86 M/mm3 (4.6-6.20); Red Cell Distribution Width 12.4 % (11.5-14.5); White Blood Count 5.1 K/mm3 (4.5-10.0)
[2025-03-28 12:44] LABS: Iron 71 ug/dL (49-181)
[2025-03-28 12:53] LABS: Percent Iron Saturation 22 % (20-50)
== END 2025-03-28 11:44 | disposition home or self-care (01) ==
LOC: ANHLAB 11:44
PROVIDERS: PCP Nurse Practitioner Adult Health; Visit Provider Internal Medicine Hematology & Oncology
DX: D64.9 Anemia, unspecified (principal)
CPT/HCPCS: 36415; 82728; 83540; 83550; 85027

== ENCOUNTER 2025-08-01 07:44 | Outpatient (CLI) | payer BC, SELFPAY ==
--- OUTSIDE RECORDS SUMMARY | 2025-08-01 08:03 | XMS_ITS | Clinical Summary ---
Author Organization [facility] Address [address] [place] [address] Care Team Providers Care Golf Superintendent Name Role Phone Unavailable Primary Care Provider [...] of 3 - 19+ 3-dose series) 2002 HPV Vaccines (1 - 3-dose SCD M series) 2010 COVID-19 Vaccine (2023-2 5 season) 2025 Meningococcal B Vaccine Aged Out No l [...]
--- OUTSIDE RECORDS SUMMARY | 2025-08-01 08:03 | XMS_ITS | Clinical Summary ---
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 Gender Identity Not on file Sexual Orientation Not on file Obstetrics History Last Filed Vital Signs Vital Sign Reading Time Taken Comments Blood Pressure 115/80 10/06/2023 11:55 AM HYDRAULIC HAMMER OPERATOR Pulse 65 10/06/2023 11:55 AM HYDRAULIC HAMMER OPERATOR Temperature 36.8 C (98.3 F) 10/06/2023 11:55 AM HYDRAULIC HAMMER OPERATOR Respiratory Rate 18 10/06/2023 11:55 AM HYDRAULIC HAMMER OPERATOR Oxygen Saturation 100% 10/06/2023 11:55 AM HYDRAULIC HAMMER OPERATOR Inhaled Oxygen Concentration - - Weight 97.5 kg (215 lb) 10/06/2023 10:01 AM HYDRAULIC HAMMER OPERATOR Height 177.8 cm (5' 10) 10/06/2023 10:01 AM HYDRAULIC HAMMER OPERATOR Body Mass Index 30.85 10/06/2023 10:01 AM HYDRAULIC HAMMER OPERATOR Plan of Treatment Health Maintenance Due Date Last Done Comments Depression Screening 1983 Hepatitis C Screening 1983 Varicella Vaccines (1 of 2 - 13+ 2-dose series) 09/03/2002 HPV Vaccines (1 - 3-dose SCDM series) 2010 Regular Well Visit/Exam 18-64 03/05/2020 03/05/2019 Covid-19 Vaccine ( season) 2025 09/25/2021, 12/15/2020, 11/15/2020, Additional history exists Influenza Vaccine (#1) 2025 , 08/30/2022, 10/11/2020, Additional history exists DTaP/Tdap/Td Vaccine (4 - Td or Tdap) 08/30/2032 08/30/2022, 02/16/2012, 11/19/2011, Additional history exists Hepatitis B Screening Completed 04/13/2003 , 09/04/2002, 08/06/2002 Pneumococcal vaccine <65 Aged Out No longer [...] Please contact Infection Prevention. 10/03/2023 10/03/[address] [place] [address] [address] [employer] OOS OOS FEDERAL Advance Directives For more information, please contact: [phone] * Full Code (Latest Code Status on File) Date Activated Date Inactivated Comments 10/06/2023 9:57 AM 10/06/2023 4:26 PM * Full Code Date Activated Date Inactivated Comments 10/06/2023 9:57 AM 10/06/2023 9:57 AM Care Teams Actuary Relationship Specialty Start Date End Date Yadiel Eaton MD PCP - General Family Practice 10/06/23
--- OUTSIDE RECORDS SUMMARY | 2025-08-01 08:03 | XMS_ITS | Clinical Summary ---
Author Organization [facility] Address [address] [place] [address] Care Team Providers Care Abalone Diver Name Role Phone Yadiel Eaton MD Primary Care Provider [phone] Allergies No known active allergies Medications omeprazole (PriLOSEC) 40 mg Capsule, Delayed Release(E.C.) Take 1 Capsule by mouth daily. 07/16/2024 Active ferrous sulfate 325 mg (65 mg iron) tablet Take 325 mg by mouth daily. Active MULTIVITAMIN ORAL Take by mouth daily. Active Active Problems No known active problems Family History Medical History Relation Name Comments [...] Sign Reading Time Taken Comments Blood Pressure 119/63 03/29/2025 1:19 PM CDT Pulse 67 03/29/2025 1:19 PM CDT Temperature 35.9 C (96.6 F) 03/29/2025 1:19 PM CDT Respiratory Rate 16 03/29/2025 1:19 PM CDT Oxygen Saturation 95% 03/29/2025 1:19 PM CDT Inhaled Oxygen Concentration - - Weight 102.7 kg (226 lb 6.4 oz) 03/29/2025 1:19 PM CDT Height 177.8 cm (5' 10) 08/17/2024 3:07 PM CDT Body Mass Index 32.49 08/17/2024 3:07 PM CDT Plan of Treatment Upcoming Encounters Date Type Department Care Team (Late st Contact Info) Description 10/07/2025 9:45 AM FIELD PROJECT MANAGER Office Visit [facility] Oncology and Hematology - [place] [address] [facility] [address] [place] [address] Shadi Suárez MD [address] [facility] [address] [place] [address] Health Maintenance Due Date Last Done Comments Pre-Diabetes and Diabetes Screening 1983 HPV VACCINES (1 - 3-dose SCD M series) 2010 INFLUENZA VACCINE (#1) 2025 , 08/30/2022, 10/11/2020, Additional history exists COVID-19 Vaccine (2024-2 6 season) 2025 09/25/2021, 12/15/2020, 11/15/2020 DTAP/TDAP/TD VACCINES (4 - T d or Tdap) 08/30/2032 08/30/2022, 11/19/2011, 07/30/2002 HEPATITIS B VACCINES Completed 04/13/2003, 09/04/2002, 08/06/2002 Insurance [facility] FEDERAL [facility] FEDERAL Care Teams Abalone Diver Relationship Specialty Start Date End Date Yadiel Eaton MD [address] [place] [address] PCP - General Family Practice 12/22/24
[2025-08-01 18:41] LABS: Alanine Aminotransferase 25 U/L (6-50); Albumin Level 4.3 g/dL (3.5-5.1); Alkaline Phosphatase 72 U/L (38-126); Anion Gap 7 mmol/L (4-12); Aspartate Amino Transferase 65 U/L (17-59); Bilirubin,Total 0.5 mg/dL (0.2-1.3); Blood Urea Nitrogen 14 mg/dL (9-20); Calcium 9.3 mg/dL (8.4-10.2); Carbon Dioxide 27 mmol/L (22-30); Chloride 103 mmol/L (98-107); Cholesterol 229 mg/dL (0-200); Estimated Glomerular Filt Rate > 60; Glucose 89 mg/dL (65-110); HDL Direct 59 mg/dL; Potassium 4.0 mmol/L (3.4-5.0); Sodium 137 mmol/L (137-145); Total Protein 7.6 g/dL (6.3-8.2); Triglycerides 173 mg/dL (<150)
[2025-08-01 18:50] LABS: Hematocrit 44.4 % (42.0-52.0); Hemoglobin 14.1 g/dL (14.0-18.0); Mean Corpuscular HGB Conc 31.8 g/dl (32-36); Mean Corpuscular Hemoglobin 28.5 pg (26-34); Mean Corpuscular Volume 89.7 fl (80-100); Platelet Count Result 207 k/mm3 (150-375); Red Blood Count 4.95 M/mm3 (4.6-6.20); White Blood Count 4.9 K/mm3 (4.5-10.0)
[2025-08-01 19:35] LABS: Vitamin B12 714.0 pg/mL (239-931)
== END 2025-08-01 07:45 | disposition home or self-care (01) ==
LOC: ANHBWCLAB 07:45
PROVIDERS: PCP Nurse Practitioner Adult Health; Visit Provider Nurse Practitioner Adult Health
DX: Z51.81 Encounter for therapeutic drug level monitoring (principal); Z00.00 Encounter for general adult medical examination without abnormal findings
CPT/HCPCS: 36415; 80053; 80061; 82607; 85027

== ENCOUNTER 2025-08-25 07:51 | Outpatient (CLI) | payer BC, SELFPAY ==
[2025-08-30 09:08] LABS: Free Testosterone (Direct) 6.7 pg/mL (6.8-21.5)
== END 2025-08-25 07:52 | disposition home or self-care (01) ==
LOC: ANHBWCLAB 07:52
PROVIDERS: PCP Nurse Practitioner Adult Health; Visit Provider Nurse Practitioner Adult Health
DX: R79.89 Other specified abnormal findings of blood chemistry (principal)
CPT/HCPCS: 84402; 84403